=== PATIENT | female | born 1945 | race Caucasian/White ===

== ENCOUNTER → 2017-11-28 12:36 | Outpatient (CLI) | payer MEDICARE, SELFPAY ==
--- NOTE | 2017-11-28 12:43 | MM_ITS ---
MM Dig mamm DX unilat LT CAD, US breast LT complete COMPARISON: 05/15/2017, 05/02/2017, 05/29/2017 INDICATION: Follow-up abnormal mammogram and cyst aspiration ORDERING PHYSICIAN: Larry Menjivar MD PATIENT AGE: 72 years TECHNIQUE: Left mammogram with spot compression views and left breast ultrasound FINDINGS: Average fibroglandular tissue. Multiple nodular densities are once again noted involving the left breast. Benign-appearing calcifications are present. Nodular densities once again noted in the superior left breast is a small focus of calcification. This does appear to at least partially compress out on spot compression views. No malignant appearing mass or malignant appearing microcalcification apparent. Left breast ultrasound there are multiple complex and simple cysts present including a 4 mm cyst at 1:00 near the nipple, complex 12 mm cyst at 1:00, complex 12 mm cyst at 2:00, 13 mm cyst at 6:00, 5 mm cyst at 6:00, 9 mm complex cyst at 11:00. No suspicious nodules are evident. Small nodes are present in the axilla. IMPRESSION: Benign findings. No convincing evidence of malignancy. BI-RADS Category: 2 Benign Finding(s) RECOMMENDED FOLLOW-UP: 6M - 6 MONTH FOLLOW-UP Recommend bilateral screening mammogram in 6 months (A letter has been sent to the patient regarding results of the study.)
== END ==
PROVIDERS: PCP Family Medicine; Visit Provider Family Medicine
DX: R92.8 Other abnormal and inconclusive findings on diagnostic imaging of breast (principal)
CPT/HCPCS: 76641; 77065

== ENCOUNTER → 2018-06-05 09:47 | Outpatient (CLI) | payer MEDICARE, SELFPAY ==
--- NOTE | 2018-06-05 09:49 | MM_ITS ---
MM Dig SC mamm unilat LT CAD CAD Screening COMPARISON: Digital left mammogram with CAD 11/28/2017 and digital left mammogram with CAD 05/29/2017 INDICATION: There is been previous right mastectomy for malignancy. There is a history of breast cancer patient maternal aunt and paternal cousin TECHNIQUE: Standard CC and MLO images were obtained. R2 CAD reviewed. FINDINGS: Moderate heterogenic fibro glandular densities are seen in the subareolar region. There are benign-appearing calcifications noted as seen previously. There are couple mole markers. There is a stable nodular density just deep to the nipple best seen on the CC projection and previous ultrasound in November of this year showed multiple simple and complex cysts there is no suspicious lesion and there are no suspicious microcalcifications. In the subareolar region. IMPRESSION: Stable exam no suspicious lesion seen BI-RADS Category: 2 Benign Finding(s) RECOMMENDED FOLLOW-UP: 1YR - 1 YEAR FOLLOW-UP (A letter has been sent to the patient regarding results of the study.)
== END ==
PROVIDERS: PCP Family Medicine; Visit Provider Family Medicine
DX: Z12.31 Encounter for screening mammogram for malignant neoplasm of breast (principal)
CPT/HCPCS: 77067

== ENCOUNTER → 2019-07-03 09:47 | Outpatient (CLI) | payer MEDICARE, SELFPAY ==
--- NOTE | 2019-07-03 09:50 | MM_ITS ---
PROCEDURE: MM DIG SC MAMM UNILAT LT CAD CLINICAL INDICATION: SCREENING There has been a previous right mastectomy August 1996. There is a history of breast cancer patient's paternal aunt and paternal cousins. COMPARISON: DXLT MM Dig mamm DX unilat LT CAD from 11/28/2017 SCUNILT MM Dig SC mamm unilat LT CAD from 06/05/2018 DIG MAMM-DX UNI-LT from 06/05/2018 TECHNIQUE: Standard CC and MLO images were obtained. R2 CAD reviewed. FINDINGS: Scattered fibroglandular densities are seen. Again noted are multiple nodular densities which appear to be stable compared with the previous left mammogram studies. Previous ultrasound showed combination of simple and complex cysts in the left breast. Again noted are multiple benign-appearing micro and macrocalcifications. There there is no new or suspicious lesion and no suspicious microcalcifications. Are 2 mole markers as noted previously. IMPRESSION: Stable exam with benign findings as described above BI-RAD Category: 2 Benign Finding(s) FOLLOW-UP: 1YR 1 Year Follow-up (A letter has been sent to the patient regarding results of the study.) Dictated by: Dr. Feliz Barajas MD 07/03/2019 12:[address] Feliz Barajas MD in [place] 07/03/2019 12:13
== END ==
PROVIDERS: PCP Family Medicine; Visit Provider Family Medicine
DX: Z12.31 Encounter for screening mammogram for malignant neoplasm of breast (principal)
CPT/HCPCS: 77067

== ENCOUNTER → 2019-07-07 11:12 | Outpatient (CLI) | payer MEDICARE, SELFPAY ==
--- NOTE | 2019-07-07 11:16 | XR_ITS ---
PROCEDURE: XR PELVIS 1-2V CLINICAL INDICATION: LT GROIN PAIN COMPARISON: No exams were available for comparison TECHNIQUE: XR Pelvis AP View FINDINGS: No fracture or dislocation is evident. There is mild sclerosis of the symphysis pubis. Minor degenerative changes are present in the SI joints and hips. Unremarkable soft tissues. 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
== END ==
PROVIDERS: PCP Family Medicine; Visit Provider Family Medicine
DX: R10.32 Left lower quadrant pain (principal)
CPT/HCPCS: 72170

== ENCOUNTER → 2020-06-21 08:45 | Outpatient (CLI) | payer MEDICARE, SELFPAY ==
--- NOTE | 2020-06-21 08:48 | MM_ITS ---
PROCEDURE: MM DIG SC MAMM UNILAT LT CAD Digital Breast Tomosynthesis Included CLINICAL INDICATION: SCREENING There has been a previous right mastectomy for malignancy. There is a history of breast cancer in the patient's paternal aunt and paternal cousins. Patient also has a history of endometrial carcinoma. COMPARISON: MG SCUNILT MM Dig SC mamm unilat LT CAD from 06/05/2018 MG DIG MAMM-DX UNI-LT from 06/05/2018 MG MM DIG SC MAMM UNILAT LT CAD from 07/03/2019 TECHNIQUE: Standard CC and MLO images and 3D Tomosynthesis was obtained. R2 CAD reviewed. FINDINGS: Moderate somewhat heterogenic fibroglandular densities are seen in the subareolar region. A dominant density just deep to the nipple seen on the previous year's exam is not seen and presumably is a cyst which was either aspirated or has spontaneously this decompressed. Again noted are multiple benign-appearing micro and macrocalcifications. There are 3 mole markers noted. There is no suspicious lesion seen and no suspicious microcalcifications. IMPRESSION: Stable exam with no suspicious lesions seen BI-RAD Category: 2 Benign Finding(s) FOLLOW-UP: 1YR 1 Year Follow-up (A letter has been sent to the patient regarding results of the study.) Dictated by: Dr. Feliz Barajas MD 06/29/2020 13:38 Dr. Feliz Barajas MD in [place] 06/29/2020 13:38
== END ==
PROVIDERS: PCP Family Medicine; Visit Provider Family Medicine
DX: Z12.31 Encounter for screening mammogram for malignant neoplasm of breast (principal)
CPT/HCPCS: 77063; 77067

== ENCOUNTER → 2020-09-21 16:09 | Outpatient (CLI) | payer MEDICARE, SELFPAY | PROVIDERS: PCP Family Medicine; Visit Provider Family Medicine | DX: Z20.828 Contact with and (suspected) exposure to other viral communicable diseases (principal); U07.1 COVID-19 | CPT/HCPCS: U0003 ==

== ENCOUNTER → 2021-06-23 10:19 | Outpatient (CLI) | payer MEDICARE, SELFPAY ==
--- NOTE | 2021-06-23 10:20 | MM_ITS ---
PROCEDURE INFORMATION: Exam: MG unilateral Screening 3D Mammography Exam date and time: 06/23/2021 10:20 AM Age: 75 years old Clinical indication: Encounter for screening mammogram for malignant neoplasm of breast TECHNIQUE: Imaging protocol: Unilateral screening tomosynthesis and 2D mammography including computer-aided detection (CAD) when performed. COMPARISON: No relevant prior studies available. FINDINGS: MAMMOGRAPHY: Breast composition: The breast tissue is heterogeneously dense, which may obscure small masses. Mass: None. Architectural distortion: None. Calcifications: No suspicious calcifications. Asymmetric density: None. Skin thickening: None. Axillary adenopathy: None. The patient is status post right mastectomy IMPRESSION: No mammographic evidence of malignancy. Annual screening is recommended unless otherwise clinically indicated. ASSESSMENT: BI-RADS Category 1: Negative
== END ==
PROVIDERS: PCP Family Medicine; Visit Provider Family Medicine
DX: Z12.31 Encounter for screening mammogram for malignant neoplasm of breast (principal)
CPT/HCPCS: 77063; 77067

== ENCOUNTER → 2021-07-07 11:44 | Outpatient (CLI) | payer MEDICARE, SELFPAY ==
[2021-07-07 12:08] LABS: Basophils % 0.4 % (0.1-2.0); Eosinophils # 0.3 K/mm3 (0.0-0.4); Eosinophils % 3.7 % (0.1-12.0); Hematocrit 41.7 % (37.0-47.0); Hemoglobin 13.3 g/dL (12.2-16.2); Lymphocytes # 2.6 K/mm3 (0.7-4.5); Lymphocytes % 37.9 % (10-50); Mean Corpuscular HGB Conc 31.9 g/dL (31.8-35.4); Mean Corpuscular Hemoglobin 29.6 pg (27.0-31.2); Mean Platelet Volume 8.2 fl (7.4-10.4); Monocytes # 0.5 K/mm3 (0.1-1.0); Monocytes % 6.6 % (1.7-9.3); Neutrophils # 3.5 K/mm3 (1.8-7.8); Neutrophils % 51.3 % (37.0-80.0); Platelet Count 300 K/mm3 (142-424); Red Blood Count 4.48 M/mm3 (4.20-5.40); Red Cell Distribution Width 14.5 % (11.5-17.5); White Blood Count 6.9 K/mm3 (4.8-10.8)
[2021-07-07 12:41] LABS: Erythrocyte Sedimentation Rate 12 mm/hr (0-30)
[2021-07-07 13:26] LABS: Alanine Aminotransferase 17 U/L (12-78); Albumin Level 4.4 g/dl (3.5-5.0); Albumin/Globulin Ratio 1.6 (1.1-1.8); Alkaline Phosphatase 76 U/L (38-126); Anion Gap 13.7 mEq/L (5-15); Aspartate Amino Transferase 20 U/L (14-36); Bilirubin,Total 0.3 mg/dl (0.2-1.3); Blood Urea Nitrogen 15 mg/dl (7-17); Calcium 10.7 mg/dl (8.4-10.2); Carbon Dioxide 23 mmol/L (22.0-30.0); Chloride 109 mmol/L (98-107); Estimated Glomerular Filt Rate 97 ml/min (>60); GFR (African American) 117 ML/MIN (>60); Globulin 2.7 g/dL (1.3-3.2); Glucose 96 mg/dl (74-100); Potassium 4.7 mmoL/L (3.5-5.1); Sodium 141 mmol/L (136-145); Total Protein,Serum 7.1 g/dl (6.3-8.2)
[2021-07-07 13:31] LABS: C-Reactive Protein 4.5 mg/L (0-4)
[2021-07-07 13:42] LABS: 25-OH Vitamin D, Total 49.3 ng/mL (30-100)
== END ==
PROVIDERS: Visit Provider Internal Medicine
DX: M05.9 Rheumatoid arthritis with rheumatoid factor, unspecified (principal); M15.9 Polyosteoarthritis, unspecified; M35.3 Polymyalgia rheumatica; M85.50 Aneurysmal bone cyst, unspecified site; Z79.52 Long term (current) use of systemic steroids; E66.9 Obesity, unspecified; Z68.33 Body mass index [BMI] 33.0-33.9, adult
CPT/HCPCS: 36415; 80053; 82306; 85025; 85651; 86140

== ENCOUNTER 2021-08-27 10:04 | Emergency (ER) | payer MEDICARE, SELFPAY ==
[2021-08-27 11:15] VITALS: BP 149/74; PULSE 74; RESP 19; TEMP 36.8; O2SAT 97; BMI 36.6
[2021-08-27 11:45] VITALS: BP 149/74; PULSE 74; RESP 19; TEMP 36.8; O2SAT 97
--- NOTE | 2021-08-27 11:47 | HMH.EDUTC ---
[facility] Disposition Clinical Impression: UTI (urinary tract infection) Qualifiers: Urinary tract infection type: site unspecified Hematuria presence: with hematuria Qualified Code(s): N39.0 - Urinary tract infection, site not specified Disposition: Home, Self-Care Condition on Discharge: Good Instructions: Urinary Tract Infection, DI for Urinary Tract Infection (UTI), Cephalexin Additional Instructions: *Increase fluids. Water not Soda or Tea *Start antibiotic immediately and be sure to take as ordered for the FULL length of time although you should start to see improvement over the next 48 hours *Pyridium as needed Remember this medication will turn your urine Cummings. This is normal but it will stain what ever it gets on *You should not use Pyridium for more than 48 hours. If so , follow up with your primary physician to review urine culture and ensure that antibiotic is adequate for infection *Be SURE to follow up anytime for new or worsening symptoms with your family doctor. AND in 48 hours for urine culture results with your family doctor, if you do not have a doctor then you may call back to the [facility] for urine culture results and further treatment. We do recommend that you choose and establish care with a Primary Care Physician. AND follow up with them in 10-14 days to repeat UA to ensure infection is resolved and blood no longer present *Be sure to let your PCP know that we sent urine cultures from the [facility] so they can follow up to ensure that you area the on the correct antibiotic Call your doctor office and make appointment for 48 hours (2 days from today) to follow up and get the results of your urine culture and further treatment Prescriptions: cephALEXin [cephALEXin 500mg capsule*] 500 mg PO BID 7 Days #14 cap Transmission Status: Received by [id number] Phenazopyridine HCl [Pyridium 200mg Tablet] 200 pow PO TID #6 tab Transmission Status: Received by [id number] Referrals: Larry Menjivar MD [Primary Care Provider] - As needed Time of Disposition: 11:49 Medical Decision Making - Aneesh Inquiry Pt receiving controlled substance: No Aneesh was queried for this patient: No Vital Signs: 08/27/21 11:15 Temperature 98.2 F Temperature Source Oral Pulse Rate [Right Brachial] 74 Respiratory Rate 19 Blood Pressure [Right Arm] 149/74 H Blood Pressure Mean [Right Arm] 99 Blood Pressure Source [Right Arm] Automatic Cuff Blood Pressure Position [Right Arm] Sitting 02 Sat by Pulse Oximetry 97 Oxygen Delivery Method Room Air - Lab Data Lab results reviewed: Yes: I reviewed the patient's lab results. Orders (Tests/Meds): ORDERS Category Date Time Status Urine Culture Stat Micro 08/27/21 11:35 Ordered [facility] HPI - General Stated complaint: possible uti Time Seen by Provider: 08/27/21 11:47 Mode of Arrival: Ambulatory Source of Information: Patient Limitations: No Limitations Description of Symptoms (Recalled from Triage Doc. by RN): PATIENT C/O FREQUENCY AND BURNING WITH URINATION SINCE THIS MORNING HEENT Symptoms (Recalled from RN notes): No Resp Symptoms (Recalled from RN notes): No Skin Symptoms (Recalled from RN notes): No MS Symptoms (Recalled from RN notes): No Functional Status (Recalled from RN notes): WNL - History of Present Illness Provider Complaint: Patient states that she had similar symptoms about a week ago and she drink water and cranberry juice and it went away but this morning she woke up around 4am with burning with urination and feeling of urgency and frequency States that she feels like she may have a UTI - Related Data Home Medications Medication Instructions Recorded Confirmed levothyroxine 75 mcg tablet PO 90 Days #90 01/22/18 03/10/21 lisinopril 40 mg tablet PO 90 Days #90 01/22/18 03/10/21 hydroxychloroquine 200 mg tablet 200 mg PO BID tab 02/04/20 03/10/21 prednisone 2.5 mg tablet 2.5 mg PO tab 02/04/20 03/10/21 prednisone 5 mg tablet 5 mg PO DA
[2021-08-27 12:32] LABS: Apearance,Urine Clear (Clear); Blood, Urine Trace (Negative); Color,Urine Dark Yellow (Yellow); Glucose,Urine (UA) Negative (Negative); Ketones,Urine Negative (Negative); Protein,Urine Negative (Negative); Specific Gravity, Urine 1.015 (1.005-1.030)
[2021-08-27 12:33] LABS: Bilirubin,Urine Negative (Negative); UTC Leukocyte Esterase,Urine Trace (Negative); UTC Nitrate,Urine Negative (Negative); Urobilinogen,Urine 0.2 EU/dl (0.2)
== END 2021-08-27 11:50 | disposition home or self-care (01) ==
PROVIDERS: Emergency Provider Nurse Practitioner; PCP Family Medicine
DX: N30.00 Acute cystitis without hematuria (principal); B96.20 Unspecified Escherichia coli [E. coli] as the cause of diseases classified elsewhere; I10 Essential (primary) hypertension; E78.5 Hyperlipidemia, unspecified; E03.9 Hypothyroidism, unspecified; Z79.899 Other long term (current) drug therapy
CPT/HCPCS: 81003; 87086; 87088; 87186; 99202; G0463

== ENCOUNTER → 2021-11-15 10:21 | Outpatient (CLI) | payer MEDICARE, SELFPAY | PROVIDERS: Visit Provider Surgery | DX: Z01.812 Encounter for preprocedural laboratory examination (principal); Z11.52 Encounter for screening for COVID-19; Z12.11 Encounter for screening for malignant neoplasm of colon | CPT/HCPCS: C9803; U0003; U0005 ==

== ENCOUNTER 2021-11-17 06:17 | Day surgery (SDC) | payer MEDICARE, SELFPAY ==
[2021-10-02 09:47] VITALS: BMI 33.8
[2021-11-17 06:45] VITALS: BP 128/73; PULSE 75; RESP 18; TEMP 36.2; O2SAT 98
--- NOTE | 2021-11-17 07:20 | HMH.ANESCL ---
[facility] Anesthesia Checklist - Patient Identification Patient Identification: Arm Band - Structural Data Admitted From: Home Planned Operative Procedure/s: colonoscopy Consent for Planned Operative Procedure(s) Verified: Yes Verified Documents: Surgical Consent, History and Physical - NPO Status Verified Time NPO: 00:00 - Additional verifications Anesthesia Reactions: No - Airway Assessment C-Spine Mobility Assessed: Yes (mp2) TMJ Mobility Assessed: Yes Dentition: Good Dentition - Neurological Assessment Level of Consciousness: Awake, Alert - Anesthesia Plan Anesthesia Risk discussed: Yes Anesthesia Plan: Verified ASA Class: II Anesthesia Type: MAC [facility] History I have reviewed the patient's past medical history: Yes Medical History: Reports:: Cancer, Hyperlipidemia, Hypertension Denies:: Diabetes Mellitus Type 1, Diabetes Mellitus Type 2, Internal Pacemaker, MRSA, Seizures *Have you ever received a pneumonia vaccine?: Yes *Have you received a flu vaccine this season?: Yes Other Medical History: Reports: Arthritis, Hypothyroidism, Sinus Problems, Other Anesthesia experience/problems:: nac Laterality Cases: Right: Mastectomy, Bilateral: Other Other Surgeries: Yes: Cancer Surgery, Hernia Repair, Hysterectomy-Total, Tubal Ligation. No: Pacemaker Amputation: No Fractures: No - *Social History Last grade of school completed: High school graduate Smoking Status: Never smoker Alcohol Intake: never Substance Use Type: denies use *Occupational Status:: other Housing: house Household Members: spouse *Travel in the last 8 weeks: None Family Hx:: Cancer, Diabetes, Coronary Artery Disease, Asthma [employer] history: Tubal Ligation
[2021-11-17 07:27] VITALS: O2SAT 98
--- NOTE | 2021-11-17 08:31 | HMH.SCOPE ---
- Procedure: Date: 11/17/21 Patient Date of :: 1945 Procedure Performed:: Total colonoscopy to terminal ileum with multiple polypectomy Indications:: Patient is a pleasant 76-year old female. She has a family history of colon cancer in her mother diagnosed with colon cancer in her 70s. She is undergone several colonoscopies in the past by Dr. Gay in September 2009, April 2011, July 2012, August 2015. She had a polyp removed at each time. She is without complaints. Performing Provider:: Vitaly Jiang MD Referring Provider:: Samuel Cooper MD Sedation:: MAC sedation Procedure:: Patient was taken to endoscopy procedure room. She was positioned in lateral decubitus position. Adequate intravenous sedation was achieved with anesthesia titration of propofol. Variable stiffness Olympus colonoscope was inserted via the anus. With some minor difficulty due to some angulation and floppiness of the sigmoid colon colonoscope was advanced to the cecum. Colonic preparation was good however there was some undigested vegetable matter within the colon. Visualization was achieved with moving and manipulating this vegetable matter to allow for visualization of the underlying mucosa. The ileocecal valve was clearly identified and the colonoscope was advanced into the terminal ileum which appeared grossly normal. Colonoscope was withdrawn through the colon with careful surveillance. She did have some left-sided diverticulosis. There were 2 small polyps in the sigmoid colon measuring about 3 to 4 mm removed with cold snare. In the distal sigmoid colon there was a small polyp removed. The rectosigmoid there was a relatively large polypoid pedunculated lesion which was removed in a piecemeal fashion using hot snare. In the proximal rectal area there was a somewhat villous pedunculated lesion removed with hot snare. In the distal rectum there were a couple hyperplastic appearing polyps removed with biopsy forceps. Retroflexion within the rectum revealed some prolapsing hemorrhoids. Colonoscope was withdrawn. Findings:: Polyps as noted above Diverticulosis Nonbleeding internal hemorrhoids Recommendations:: Follow-up colonoscopy pending pathology. Likely 2 or 3 years. Complications:: None immediately apparent Estimated blood obtained (mL): 2
[2021-11-17 08:33] VITALS: BP 128/55; PULSE 66; RESP 16; TEMP 36.1; O2SAT 96
[2021-11-17 08:43] VITALS: BP 141/71; PULSE 58; RESP 18; TEMP 36.1; O2SAT 99
[2021-11-17 08:53] VITALS: BP 145/71; PULSE 61; RESP 18; TEMP 36.1; O2SAT 100
[2021-11-17 09:04] VITALS: BP 145/71; PULSE 61; RESP 18; TEMP 36.1; O2SAT 100
== END 2021-11-17 09:04 | disposition home or self-care (01) ==
LOC: OUTP 06:18
PROVIDERS: PCP Family Medicine; Visit Provider Surgery
PROC: 0DJD8ZZ Inspection of Lower Intestinal Tract, Via Natural or Artificial Opening Endoscopic (ICD-10-PCS; principal; 2021-11-17 07:30)
DX: Z12.11 Encounter for screening for malignant neoplasm of colon (principal); K63.5 Polyp of colon; K62.1 Rectal polyp; K57.32 Diverticulitis of large intestine without perforation or abscess without bleeding; K56.2 Volvulus; Z86.010 Personal history of colon polyps; K64.9 Unspecified hemorrhoids; Z80.0 Family history of malignant neoplasm of digestive organs; E78.5 Hyperlipidemia, unspecified; I10 Essential (primary) hypertension; Z83.3 Family history of diabetes mellitus; Z82.5 Family history of asthma and other chronic lower respiratory diseases; Z82.49 Family history of ischemic heart disease and other diseases of the circulatory system
CPT/HCPCS: 45380; 45385; 88305

== ENCOUNTER → 2022-01-05 11:09 | Outpatient (CLI) | payer MEDICARE, SELFPAY ==
[2022-01-05 11:32] LABS: Basophils # 0.1 K/mm3 (0-0.2); Basophils % 1.1 % (0.1-2.0); Eosinophils # 0.2 K/mm3 (0.0-0.4); Eosinophils % 3.9 % (0.1-12.0); Hematocrit 41.8 % (37.0-47.0); Hemoglobin 13.6 g/dL (12.2-16.2); Lymphocytes # 1.9 K/mm3 (0.7-4.5); Lymphocytes % 30.9 % (10-50); Mean Corpuscular HGB Conc 32.5 g/dL (31.8-35.4); Mean Corpuscular Hemoglobin 29.7 pg (27.0-31.2); Mean Corpuscular Volume 91.2 fl (81-99); Mean Platelet Volume 7.9 fl (7.4-10.4); Monocytes # 0.4 K/mm3 (0.1-1.0); Monocytes % 6.6 % (1.7-9.3); Neutrophils # 3.6 K/mm3 (1.8-7.8); Neutrophils % 57.4 % (37.0-80.0); Platelet Count 272 K/mm3 (142-424); Red Blood Count 4.59 M/mm3 (4.20-5.40); Red Cell Distribution Width 14.6 % (11.5-17.5); White Blood Count 6.2 K/mm3 (4.8-10.8)
[2022-01-05 12:24] LABS: Alanine Aminotransferase 19 U/L (12-78); Albumin Level 4.6 g/dl (3.5-5.0); Albumin/Globulin Ratio 1.9 (1.1-1.8); Alkaline Phosphatase 72 U/L (38-126); Anion Gap 12.4 mEq/L (5-15); Aspartate Amino Transferase 23 U/L (14-36); Bilirubin,Total 0.6 mg/dl (0.2-1.3); Blood Urea Nitrogen 18 mg/dl (7-17); Calcium 10.7 mg/dl (8.4-10.2); Carbon Dioxide 24 mmol/L (22.0-30.0); Chloride 107 mmol/L (98-107); Estimated Glomerular Filt Rate 81 ml/min (>60); GFR (African American) 98 ML/MIN (>60); Globulin 2.4 g/dL (1.3-3.2); Glucose 107 mg/dl (74-100); Potassium 4.4 mmoL/L (3.5-5.1); Sodium 139 mmol/L (136-145)
[2022-01-05 12:29] LABS: C-Reactive Protein 2.6 mg/L (0-4)
[2022-01-05 13:51] LABS: Erythrocyte Sedimentation Rate 15 mm/hr (0-30)
== END ==
PROVIDERS: Visit Provider Nurse Practitioner Family
DX: M05.9 Rheumatoid arthritis with rheumatoid factor, unspecified (principal); Z79.899 Other long term (current) drug therapy
CPT/HCPCS: 36415; 80053; 85025; 85651; 86140

== ENCOUNTER → 2022-06-27 10:45 | Outpatient (CLI) | payer MEDICARE, SELFPAY ==
--- NOTE | 2022-06-27 10:47 | MM_ITS ---
PROCEDURE INFORMATION: Exam: MG Left Screening 3D Mammography Exam date and time: 06/27/2022 10:43 AM Age: 76 years old Clinical indication: Screening examination . Remote history of right breast cancer treated with mastectomy TECHNIQUE: Imaging protocol: Left Screening tomosynthesis and 2D mammography including computer-aided detection (CAD) when performed. COMPARISON: 1. MG MM DIG SC MAMM UNILAT LT CAD 06/23/2021 10:19 AM 2. MG MM DIG SC MAMM UNILAT LT CAD 06/21/2020 8:51 AM FINDINGS: MAMMOGRAPHY: Breast composition: The breast is heterogeneously dense, which may obscure small masses. Mass: 0.8 cm mass in the posterior third of the left lower inner quadrant. Architectural distortion: None. Calcifications: No suspicious calcifications. Asymmetric density: None. Skin thickening: None. Axillary adenopathy: None. Other findings: The patient is status post right mastectomy. IMPRESSION: Patient to be recalled for left breast ultrasound for further evaluation of a left breast mass. ASSESSMENT: BI-RADS Category 0: Incomplete- Need Additional Imaging Evaluation and/or Prior Mammograms for Comparison
== END ==
PROVIDERS: PCP Nurse Practitioner Family; Visit Provider Family Medicine
DX: Z12.31 Encounter for screening mammogram for malignant neoplasm of breast (principal)
CPT/HCPCS: 77063; 77067

== ENCOUNTER → 2022-07-09 08:45 | Outpatient (CLI) | payer MEDICARE, SELFPAY ==
--- NOTE | 2022-07-09 08:49 | US_ITS ---
PROCEDURE INFORMATION: Exam: US Left Breast, Complete Exam date and time: 07/09/2022 9:13 AM Age: 76 years old Clinical indication: Patient recalled for further evaluation of a left breast mass TECHNIQUE: TECHNIQUE: Imaging protocol: Complete ultrasound of all four quadrants of the Left breast and the retroareolar regions, including ultrasound of the axilla when performed. COMPARISON: BREASTLT US breast LT complete 11/28/2017 2:07 PM FINDINGS: Breast: Sonographic images of the left breast including the retroareolar region, all 4 quadrants and the axilla demonstrates an irregularly marginated hypoechoic solid mass with associated distortion in the 8 o'clock axis 8 cm from the nipple corresponding to the mass on mammography. It measures 1.1 x 0.9 x 0.8 cm in dimension and is suspicious for carcinoma. Few scattered subcentimeter cysts are otherwise noted in the left breast. No architectural distortion or acoustical shadowing. No skin thickening or axillary adenopathy. IMPRESSION: Suspicious posterior left lower inner quadrant mass. Ultrasound-guided core biopsy is recommended for further evaluation. ASSESSMENT: BI-RADS Category 4: Suspicious
== END ==
PROVIDERS: PCP Nurse Practitioner Family; Visit Provider Nurse Practitioner Family
DX: N63.20 Unspecified lump in the left breast, unspecified quadrant (principal); R92.8 Other abnormal and inconclusive findings on diagnostic imaging of breast
CPT/HCPCS: 76641

== ENCOUNTER → 2022-07-13 13:02 | Outpatient (CLI) | payer MEDICARE, SELFPAY ==
[2022-07-13 14:07] LABS: Basophils # 0.1 K/mm3 (0-0.2); Basophils % 0.8 % (0.1-2.0); Eosinophils # 0.3 K/mm3 (0.0-0.4); Eosinophils % 3.9 % (0.1-12.0); Hematocrit 39.9 % (37.0-47.0); Hemoglobin 12.9 g/dL (12.2-16.2); Lymphocytes # 2.3 K/mm3 (0.7-4.5); Lymphocytes % 31.3 % (10-50); Mean Corpuscular HGB Conc 32.3 g/dL (31.8-35.4); Mean Corpuscular Hemoglobin 28.8 pg (27.0-31.2); Mean Corpuscular Volume 89.3 fl (81-99); Monocytes # 0.5 K/mm3 (0.1-1.0); Monocytes % 7.2 % (1.7-9.3); Neutrophils # 4.2 K/mm3 (1.8-7.8); Neutrophils % 56.8 % (37.0-80.0); Platelet Count 315 K/mm3 (142-424); Red Blood Count 4.47 M/mm3 (4.20-5.40); Red Cell Distribution Width 14.1 % (11.5-17.5); White Blood Count 7.3 K/mm3 (4.8-10.8)
[2022-07-13 14:27] LABS: Alanine Aminotransferase 17 U/L (12-78); Albumin Level 4.1 g/dl (3.5-5.0); Albumin/Globulin Ratio 1.8 (1.1-1.8); Alkaline Phosphatase 83 U/L (38-126); Anion Gap 14.5 mEq/L (5-15); Aspartate Amino Transferase 21 U/L (14-36); Bilirubin,Total 0.3 mg/dl (0.2-1.3); Blood Urea Nitrogen 23 mg/dl (7-17); Calcium 10.4 mg/dl (8.4-10.2); Carbon Dioxide 25 mmol/L (22.0-30.0); Chloride 104 mmol/L (98-107); Estimated Glomerular Filt Rate 69 ml/min (>60); GFR (African American) 84 ML/MIN (>60); Globulin 2.3 g/dL (1.3-3.2); Glucose 97 mg/dl (74-100); Potassium 4.5 mmoL/L (3.5-5.1); Sodium 139 mmol/L (136-145); Total Protein,Serum 6.4 g/dl (6.3-8.2)
[2022-07-13 16:06] LABS: Erythrocyte Sedimentation Rate 12 mm/hr (0-30)
== END ==
PROVIDERS: PCP Nurse Practitioner Family; Visit Provider Internal Medicine
DX: M05.9 Rheumatoid arthritis with rheumatoid factor, unspecified (principal); M15.9 Polyosteoarthritis, unspecified; M35.3 Polymyalgia rheumatica; Z79.899 Other long term (current) drug therapy
CPT/HCPCS: 36415; 80053; 85025; 85651; 86140

== ENCOUNTER → 2022-08-01 07:26 | Outpatient (CLI) | payer MEDICARE, SELFPAY ==
--- NOTE | 2022-08-01 | US_ITS ---
FINAL REPORT CLINICAL HISTORY: .lt breast mammatone dr lucero FINDINGS: ULTRASOUND-GUIDED LEFT BREAST CORE BIOPSY TECHNIQUE: Limited images were obtained to localize region of interest. The left was prepped in a routine sterile fashion and locally anesthetized with 1% lidocaine. Standard written informed consent was obtained. An 11-gauge vacuum assisted hand-held device was utilized. Irregular lesion at 8:00 in the left lower inner quadrant was targeted. The needle was positioned posterior to the lesion. Multiple vacuum assisted core samples were obtained. The lesion was noted to be significantly smaller following biopsy. A biopsy marker clip was deployed. Procedure was well tolerated . CONCLUSION: 1. Technically successful ultrasound guided core vacuum assisted biopsy of left breast lesion as above. 2. 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 Medical and surgical oncologic follow-up recommended. Authenticated and ERN
--- NOTE | 2022-08-01 07:36 | MM_ITS ---
FINAL REPORT CLINICAL HISTORY: post .bx clip placement FINDINGS: MAMMOGRAM LEFT TECHNIQUE: Standard digital 2-D views COMPARISON: 07-07-22 DENSITY: There are scattered areas of fibroglandular density FINDINGS: Post biopsy marker clip is noted to be in satisfactory position. Postbiopsy changes are noted. Focal asymmetry corresponding to postbiopsy changes are seen in the posterior portion of the left breast at 8:00. Biopsy marker clip is seen at this site corresponding to previously noted focal asymmetry. IMPRESSION: Biopsy marker clip in good position RECOMMENDATION: Medical and surgical oncologic referral given findings on histopathology Authenticated and ERN
== END ==
PROVIDERS: PCP Nurse Practitioner Family; Visit Provider Nurse Practitioner Family
DX: R92.8 Other abnormal and inconclusive findings on diagnostic imaging of breast (principal)
CPT/HCPCS: 19083; 77065; C2618

== ENCOUNTER 2022-08-11 08:48 | Emergency (ER) | payer MEDICARE, SELFPAY ==
[2022-08-11 09:25] VITALS: BP 154/75; PULSE 73; RESP 19; TEMP 36.6; O2SAT 97; BMI 30.1
--- NOTE | 2022-08-11 09:51 | EXP.UTC ---
Discharge Plan Disposition Patient Disposition: Home, Self-Care Condition: Good Prescriptions Prescriptions: New benzonatate 100 mg capsule 100 mg PO TID PRN (Reason: cough) Qty: 30 0RF amoxicillin-pot clavulanate 875-125 mg Tablet 1 tab PO Q12H Qty: 14 0RF prednisone 10 mg tablet 10 mg PO BID 5 Days Qty: 10 0RF No Action atorvastatin [Lipitor] 10 mg tablet 10 mg PO DAILY lisinopril 40 mg tablet 40 mg PO DAILY 90 Days Qty: 90 levothyroxine 75 mcg tablet 75 mcg PO DAILY 90 Days Qty: 90 hydroxychloroquine 200 mg tablet 200 mg PO BID Label Comments: TAKE 1 TABLET BY MOUTH TWICE DAILY Referrals Follow up/Referrals: Radha Sanchez APRN [Primary Care Provider] - See instructions Activity Restrictions/Add. Instructions Additional Instructions/Restrictions: Start antibiotic today. Be sure to complete entire prescription even if feeling better Monitor temp. Tylenol every 4 hours as needed and / or ibuprofen every 6 hours as needed ( As long as your primary care physician has told you that it ok to take both. For fever/aches/pains ER if no less than 101 despite Tylenol or Motrin Humidifier/vaporizer or hot steamy shower *Tessalon Perles will not cause drowsiness but use at bedtime to help stop cough so that you may get some rest. *Start steroid today. Helps with inflammation therefore, cough and wheezing. Follow directions on the package. Reviewed side effects. Patient reports taking them before. Follow up IMMEDIATELY for new or worsening of symptoms OR no noticeable improvement over the next 48-72 hours. 911 immediately for any life threatening symptoms such as chest pain or difficulty breathing Clinical Impressions Clinical Impression: Bronchitis Sinusitis Qualifiers: Sinusitis location: unspecified location Chronicity: unspecified Qualified Code(s): J32.9 - Chronic sinusitis, unspecified Instructions Patient Instructions: Sinusitis, Acute Bronchitis, DI for Sinusitis Discharge ED Provider: Yen Leary [facility] General Stated complaint: chest congestion, cough Mode of Arrival: Ambulatory Source of Information: Patient Limitations: No Limitations Time Seen by Provider: 08/11/22 09:51 Description of Symptoms (Recalled from Triage Doc. by RN): PATIENT STATES SHE STARTED WITH SINUS DRAINAGE AND CONGESTION 2 WEEKS AGO, AND NOW FEELS LIKE IT IS IN HER CHEST. C/O COUGH AND BURNING IN CHEST HEENT Symptoms (Recalled from RN notes): Yes Resp Symptoms (Recalled from RN notes): Yes Skin Symptoms (Recalled from RN notes): No MS Symptoms (Recalled from RN notes): No Functional Status (Recalled from RN notes): WNL History of Present Illness Provider Complaint: Patient states that she started with sinus infection about 2 weeks ago that she thought would get better States that for the last couple of days the sinus pain and pressure has got worse and draining in the back of her throat causing her throat to feels sore and moving into her chest and having burning in her chest and throat at time where it is raw when she coughs States that today she was still not feeling well so she came in Related Data Home Medications Medication Instructions Recorded Confirmed levothyroxine 75 mcg tablet 75 mcg PO DAILY Supplement 90 days 01/22/18 08/11/22 ##90 lisinopril 40 mg tablet 40 mg PO DAILY Hypertension 90 01/22/18 08/11/22 days ##90 hydroxychloroquine 200 mg tablet 200 mg PO BID Arthritis 02/04/20 08/11/22 atorvastatin 10 mg tablet (Lipitor) 10 mg PO DAILY Cholesterol 03/10/21 08/11/22 Previous Rx's Medication Instructions Recorded amoxicillin 875 mg-potassium 1 tab PO Q12H #14 tabs 08/11/22 clavulanate 125 mg tablet benzonatate 100 mg capsule 100 mg PO TID PRN cough #30 caps 08/11/22 prednisone 10 mg tablet 10 mg PO BID 5 days #10 tabs 08/11/22 Allergies Allergy/AdvReac Type Severity Reaction Status Date / Time No Benny
[2022-08-11 10:10] VITALS: BP 154/75; PULSE 73; RESP 19; TEMP 36.6; O2SAT 97
== END 2022-08-11 10:14 | disposition home or self-care (01) ==
PROVIDERS: Emergency Provider Nurse Practitioner; PCP Nurse Practitioner Family
DX: J40 Bronchitis, not specified as acute or chronic (principal)
CPT/HCPCS: 99212; G0463

== ENCOUNTER → 2023-01-09 11:15 | Outpatient (CLI) | payer MEDICARE, SELFPAY ==
[2023-01-09 12:07] LABS: Chloride 108 mmol/L (98-107); Potassium 4.5 mmoL/L (3.5-5.1); Sodium 138 mmol/L (136-145)
[2023-01-09 12:09] LABS: Blood Urea Nitrogen 17 mg/dl (7-17); Estimated Glomerular Filt Rate 81 ml/min (>60); GFR (African American) 98 ML/MIN (>60)
[2023-01-09 12:10] LABS: Alanine Aminotransferase 21 U/L (12-78); Albumin Level 4.5 g/dl (3.5-5.0); Albumin/Globulin Ratio 1.8 (1.1-1.8); Alkaline Phosphatase 73 U/L (38-126); Anion Gap 11.5 mEq/L (5-15); Aspartate Amino Transferase 21 U/L (14-36); Bilirubin,Total 0.3 mg/dl (0.2-1.3); Calcium 11.2 mg/dl (8.4-10.2); Carbon Dioxide 23 mmol/L (22.0-30.0); Globulin 2.5 g/dL (1.3-3.2); Glucose 100 mg/dl (74-100)
[2023-01-09 12:16] LABS: C-Reactive Protein 1.7 mg/L (0-4)
[2023-01-09 12:29] LABS: Erythrocyte Sedimentation Rate 7 mm/hr (0-30)
[2023-01-09 12:35] LABS: Basophils % 0.4 % (0.1-2.0); Eosinophils # 0.3 K/mm3 (0.0-0.4); Eosinophils % 4.7 % (0.1-12.0); Hematocrit 42.4 % (37.0-47.0); Hemoglobin 13.5 g/dL (12.2-16.2); Lymphocytes # 2.3 K/mm3 (0.7-4.5); Lymphocytes % 33.4 % (10-50); Mean Corpuscular HGB Conc 31.9 g/dL (31.8-35.4); Mean Corpuscular Hemoglobin 28.5 pg (27.0-31.2); Mean Corpuscular Volume 89.3 fl (81-99); Monocytes # 0.4 K/mm3 (0.1-1.0); Monocytes % 6.4 % (1.7-9.3); Neutrophils # 3.8 K/mm3 (1.8-7.8); Neutrophils % 55.1 % (37.0-80.0); Platelet Count 285 K/mm3 (142-424); Red Blood Count 4.75 M/mm3 (4.20-5.40); White Blood Count 6.9 K/mm3 (4.8-10.8)
== END ==
PROVIDERS: PCP Nurse Practitioner Family; Visit Provider Nurse Practitioner Family
DX: M05.9 Rheumatoid arthritis with rheumatoid factor, unspecified (principal); M35.3 Polymyalgia rheumatica; Z79.899 Other long term (current) drug therapy
CPT/HCPCS: 36415; 80053; 85025; 85651; 86140

== ENCOUNTER → 2023-01-18 10:41 | Outpatient (CLI) | payer MEDICARE, SELFPAY ==
[2023-01-18 12:17] LABS: Intact Parathyroid Hormone 135.1 pg/mL (7.5-53.5)
[2023-01-18 13:16] LABS: 25-OH Vitamin D, Total 46.2 ng/mL (30-100)
== END ==
PROVIDERS: PCP Family Medicine; Visit Provider Internal Medicine
DX: E83.52 Hypercalcemia (principal)
CPT/HCPCS: 36415; 82306; 83970

== ENCOUNTER 2023-12-04 16:57 | Outpatient (CLI) | payer MEDICARE, SELFPAY | END 2023-12-04 23:59 | LOC: LAB.DROPOF 16:58 | PROVIDERS: PCP Nurse Practitioner Family; Visit Provider Nurse Practitioner Family | DX: N76.0 Acute vaginitis (principal) | CPT/HCPCS: 87070; 87205 ==

== ENCOUNTER 2024-03-21 09:59 | Emergency (ER) | payer MEDICARE, SELFPAY ==
[2024-03-21 10:55] VITALS: BP 147/62; PULSE 64; RESP 18; TEMP 36.6; O2SAT 95; BMI 32.2
--- NOTE | 2024-03-21 11:01 | EXP.UTC ---
Discharge Plan Disposition Patient Disposition: Home, Self-Care Condition: Good Prescriptions Prescriptions: New phenazopyridine [Pyridium] 200 mg tablet 200 mg PO Q8H 2 Days Qty: 6 0RF nitrofurantoin monohyd/m-cryst [Macrobid] 100 mg Capsule 100 mg PO BID Qty: 10 0RF Rx Instructions: must administer with a meal/food ondansetron 4 mg Tablet,Disintegrating 4 mg PO Q8H PRN (Reason: Nausea) Qty: 12 0RF No Action atorvastatin [Lipitor] 10 mg tablet 10 mg PO DAILY lisinopril 40 mg tablet 40 mg PO DAILY 90 Days Qty: 90 levothyroxine 75 mcg tablet 75 mcg PO DAILY 90 Days Qty: 90 hydroxychloroquine 200 mg tablet 200 mg PO BID Patient Comments: TAKE 1 TABLET BY MOUTH TWICE DAILY albuterol sulfate 90 mcg/actuation HFA aerosol inhaler 2 puff inhalation Q4-6H PRN (Reason: shortness of breath or wheezing) Qty: 8.5 0RF Referrals Follow up/Referrals: Radha Sanchez APRN [Primary Care Provider] - See instructions Activity Restrictions/Add. Instructions Additional Instructions/Restrictions: Drink plenty of fluids. Take tylenol or ibuprofen for pain or fever. Take the medications as directed. Follow up with your regular doctor. GO TO THE ER FOR ANY WORSENING SYMPTOMS The pyridium will make your urine turn orange, this is an expected side effect. It will stain your clothes if it comes into contact with them. We will culture the urine. That will tell what bacteria is causing your infection and which antibiotics will treat it best. Sometimes the first antibiotic we prescribe turns out to not work against different bacteria. So, make sure you follow up within 3 days if you are not getting better. Clinical Impressions Clinical Impression: UTI (urinary tract infection) Qualifiers: Urinary tract infection type: site unspecified Hematuria presence: with hematuria Qualified Code(s): N39.0 - Urinary tract infection, site not specified Instructions Patient Instructions: Urine Culture, DI for Urinary Tract Infection (UTI), Phenazopyridine Discharge ED Provider: Martín Parks [facility] [place] General Stated complaint: uti Time Seen by Provider: 03/21/24 11:01 Related Data Home Medications Medication Instructions Recorded Confirmed levothyroxine 75 mcg tablet 75 mcg PO DAILY Supplement 90 days 01/22/18 03/21/24 ##90 lisinopril 40 mg tablet 40 mg PO DAILY Hypertension 90 01/22/18 03/21/24 days ##90 hydroxychloroquine 200 mg tablet 200 mg PO BID Arthritis 02/04/20 03/21/24 atorvastatin 10 mg tablet (Lipitor) 10 mg PO DAILY Cholesterol 03/10/21 03/21/24 Previous Rx's Medication Instructions Recorded albuterol sulfate 90 mcg/actuation 2 puff inhalation Q4-6H PRN 10/01/23 aerosol inhaler shortness of breath or wheezing #8.5 grams nitrofurantoin 100 mg PO BID #10 caps 03/21/24 monohydrate/macrocrystals 100 mg capsule (Macrobid) ondansetron 4 mg disintegrating 4 mg PO Q8H PRN Nausea #12 tabs 03/21/24 tablet phenazopyridine 200 mg tablet 200 mg PO Q8H 2 days #6 tabs 03/21/24 (Pyridium) Allergies Allergy/AdvReac Type Severity Reaction Status Date / Time No Known Allergies Allergy Verified 03/21/24 11:09 [facility] Disclaimer: The information contained in this section may have been updated after the patient was seen, as this information can be updated by other users. Medical History Thyroid disease Cancer Hyperlipidemia Hypertension Surgical History History of tubal ligation History of hysterectomy Social History Smoking Status: Never smoker alcohol intake: never substance use type: denies use current occupational status: other Travel in the last 8 weeks: None household members: spouse housing: house current occupational exposures/hazards: No caffeine: Yes ROS Obtained: Yes All systems reviewed & no additional complaints except as documented Constitutional Constitutional: Reports system reviewed and no additional complaints, except as documented, Denies chills and Denies fever(s) Eyes Eyes: Denies eye discharge ENT Ears, Nose, Mouth, and Throat: Denies dysphagia, Denies sore throat and Denies throat swelling Cardiovascular Cardiovascular: Denies chest pain and Denies dyspnea Respiratory Respiratory: Denies chest congestion, Denies cough and Denies dyspnea Gastrointestinal Gastrointestingal: Denies abdominal pain, constipation, diarrhea, dysphagia, nausea or vomiting Genitourinary Female Genitourinary: Reports as per HPI, Reports dysuria, Reports urinary frequency, Denies urinary incontinence, Reports urinary hesitancy and Reports urinary urgency Musculoskeletal Musculoskeletal: Denies arthralgias and Reports back pain Integumentary/Breasts Skin/Breast: Denies rash Neurologic Neurologic: Denies paresthesias Allergic/Immunologic Allergic/Immunologic: Denies throat swelling Physical Exam General General appearance: alert and in no apparent distress Head Head exam: atraumatic and normocephalic Eye Eye exam: Present normal appearance, PERRL and EOMI ENT ENT exam: Present normal exam, mucous membranes moist, TM's normal bilaterally and normal external ear exam Neck Neck exam: Present normal inspection, full ROM and trachea midline; Absent tenderness, meningismus or lymphadenopathy Chest Chest inspection: Present normal inspection and symmetric chest wall rise; Absent tenderness Respiratory Respiratory exam: Present normal lung sounds bilaterally; Absent respiratory distress, wheezes or stridor Cardiovascular Cardiovascular exam: Present regular rate, normal rhythm and normal heart sounds Abdominal Exam Abdominal exam: Present soft and normal bowel sounds; Absent distention, tenderness, guarding, rebound, rigidity, incision, psoas sign, obturator sign, heel tap sign, Lundy's sign, Rovsing's sign or tenderness at McBurney's Point Extremities Exam Extremities exam: Present normal inspection, full ROM and normal capillary refill; Absent tenderness, edema, joint swelling, calf tenderness or cyanosis Back Exam Back exam: Present normal inspection and full ROM; Absent tenderness, CVA tenderness (R) or CVA tenderness (L) Neurological Exam Neurological exam: Present alert, oriented X3 and normal gait Psychiatric Psychiatric exam: Present normal affect and normal mood Skin Skin exam: Present warm, dry, intact and normal color Lymphatic Lymphatic Findings: no adenopathy Medical Decision Making Medical Records Medical records reviewed: No I reviewed the patient's medical records. Aneesh Inquiry Pt receiving controlled substance: No Lab Data Lab results reviewed: Yes I reviewed the patient's lab results.
[2024-03-21 11:18] LABS: Apearance,Urine Clear (Clear); Color,Urine Yellow (Yellow)
[2024-03-21 11:19] LABS: Bilirubin,Urine Negative (Negative); Blood, Urine 2+ (Negative); Glucose,Urine (UA) Negative (Negative); Ketones,Urine Negative (Negative); Protein,Urine Negative (Negative); Specific Gravity, Urine 1.005 (1.005-1.030); UTC Leukocyte Esterase,Urine 2+ (Negative); UTC Nitrate,Urine Negative (Negative); Urobilinogen,Urine 0.2 EU/dl (0.2)
--- NOTE | 2024-03-21 11:19 | PC.NURSE ---
Sent urine culture to lab via tube system.
[2024-03-21 11:50] VITALS: BP 147/62; PULSE 64; RESP 18; TEMP 36.6; O2SAT 95
--- NOTE | 2024-03-23 14:33 | PC.NURSE ---
REVIEWED PATIENT'S URINE CULTURE. PATIENT IS CURRENTLY ON MACROBID WHICH IS SUSCEPTIBLE, NO CHANGE NEEDED AT THIS TIME
== END 2024-03-21 12:10 | disposition home or self-care (01) ==
PROVIDERS: Emergency Provider Nurse Practitioner Family; PCP Nurse Practitioner Family
DX: N39.0 Urinary tract infection, site not specified (principal); B96.29 Other Escherichia coli [E. coli] as the cause of diseases classified elsewhere; R31.9 Hematuria, unspecified; R30.0 Dysuria; R35.0 Frequency of micturition
CPT/HCPCS: 81003; 87086; 87088; 87186; 99212; 99214; G0463

== ENCOUNTER 2024-03-30 10:54 | Outpatient (CLI) | payer MEDICARE, SELFPAY ==
[2024-03-30 11:44] LABS: Alanine Aminotransferase 20 U/L (12-78); Albumin Level 4.6 g/dl (3.5-5.0); Albumin/Globulin Ratio 1.9 (1.1-1.8); Alkaline Phosphatase 67 U/L (38-126); Anion Gap 13.7 mEq/L (5-15); Aspartate Amino Transferase 23 U/L (14-36); Bilirubin,Total 0.4 mg/dl (0.2-1.3); Blood Urea Nitrogen 23 mg/dl (7-17); Calcium 11.1 mg/dl (8.4-10.2); Carbon Dioxide 21 mmol/L (22.0-30.0); Chloride 109 mmol/L (98-107); Chol/HDL Ratio 3.1 (1-3.5); Cholesterol 197 mg/dl (140-200); Estimated Glomerular Filt Rate 81 ml/min (>60); GFR (African American) 97 ML/MIN (>60); Globulin 2.4 g/dL (1.3-3.2); Glucose 119 mg/dl (74-100); HDL Cholesterol 63 mg/dl (40-60); Potassium 4.7 mmoL/L (3.5-5.1); Sodium 139 mmol/L (136-145); Triglycerides 172 mg/dl (30-150); VLDL Cholesterol 34 mg/dL (0-40)
[2024-03-30 11:54] LABS: Direct LDL Cholesterol 92.33 mg/dL (100-129)
[2024-03-30 11:56] LABS: Intact Parathyroid Hormone 148.7 pg/mL (7.5-53.5)
[2024-03-30 11:57] LABS: 25-OH Vitamin D, Total 41.3 ng/mL (30-100)
[2024-03-30 12:14] LABS: Thyroid Stimulating Hormone 1.38 uIU/mL (0.465-4.68)
[2024-03-31 08:09] LABS: Triiodothyronine (T3) Free 2.6 pg/mL (2.0-4.4)
[2024-03-31 16:26] LABS: Calcium, Ionized 5.7 mg/dL (4.5-5.6)
== END 2024-03-30 23:59 | disposition home or self-care (01) ==
LOC: LAB.DROPOF 10:55
PROVIDERS: PCP Nurse Practitioner Family; Visit Provider Nurse Practitioner Family
DX: E03.9 Hypothyroidism, unspecified (principal); E83.52 Hypercalcemia; M85.80 Other specified disorders of bone density and structure, unspecified site; I10 Essential (primary) hypertension; E78.5 Hyperlipidemia, unspecified; E07.9 Disorder of thyroid, unspecified; Z68.32 Body mass index [BMI] 32.0-32.9, adult; E66.9 Obesity, unspecified
CPT/HCPCS: 80053; 80061; 82306; 82330; 83970; 84443; 84481

== ENCOUNTER 2024-10-29 15:50 | Outpatient (CLI) | payer MEDICARE, SELFPAY ==
--- NOTE | 2024-10-29 15:54 | XR_ITS ---
FINAL REPORT CLINICAL HISTORY: r/o pna, shortness of breath COMPARISON: 03/09/2020 FINDINGS: No acute pulmonary density is evident. There is no evidence of effusion or other pleural disease. There are changes of emphysema. The mediastinum has a normal appearance. The cardiac silhouette is unremarkable. There are surgical clips noted in the chest. IMPRESSION: No acute findings. Reviewed, Interpreted and Dictated by Yesi Flores MD Transcribed by Rose Perez Authenticated and [facility]
== END 2024-10-29 23:59 | disposition home or self-care (01) ==
LOC: RAD 15:51
PROVIDERS: PCP Nurse Practitioner Family; Visit Provider Nurse Practitioner Family
DX: R06.00 Dyspnea, unspecified (principal); J98.8 Other specified respiratory disorders; B97.89 Other viral agents as the cause of diseases classified elsewhere; R05.9 Cough, unspecified
CPT/HCPCS: 71046

== ENCOUNTER 2025-02-23 10:18 | Day surgery (SDC) | payer MEDICARE, SELFPAY ==
[2025-02-22 16:41] VITALS: BMI 33.6
[2025-02-23] MEDS: TETRACAINE 0.5% OPTH SOL 15ML OP ×3 (11:35→11:45)
[2025-02-23] MEDS: CYCLOPENTOLATE 2% OPHTH SOLN 2ML BOTTLE OP ×3 (11:35→11:45)
[2025-02-23] MEDS: PHENYLEPHRINE 2.5% OPHTH SOLN 2ML OP ×3 (11:35→11:45)
[2025-02-23 11:37] VITALS: BP 161/98; PULSE 70; RESP 18; TEMP 36.4; O2SAT 96
[2025-02-23 12:53] VITALS: BP 166/72; PULSE 62; RESP 16; TEMP 36.6; O2SAT 96
[2025-02-23] MEDS: SODIUM CHLORIDE 0.9% 10ML FLUSH SYRINGE 10 ML IV (12:53)
[2025-02-23] MEDS: MIDAZOLAM 2MG/2ML VIAL 1 MG IV (12:57)
[2025-02-23 12:58] VITALS: BP 158/67; PULSE 65; RESP 16; TEMP 36.6; O2SAT 91
[2025-02-23] MEDS: TIMOLOL 0.5% OPTH SOLN 5ML OP (13:00)
[2025-02-23] MEDS: TOBRAMYCIN/DEX OPTH SUSP 2.5ML OP (13:01)
[2025-02-23] MEDS: LIDOCAINE 1% PF 2ML AMPULE 2 ML IJ (13:01)
[2025-02-23 13:03] VITALS: BP 146/58; PULSE 64; RESP 16; TEMP 36.6; O2SAT 92
[2025-02-23 13:04] VITALS: BP 139/65; PULSE 63; RESP 16; TEMP 36.6; O2SAT 92
[2025-02-23 13:09] VITALS: BP 159/67; PULSE 69; RESP 17; TEMP 36.2; O2SAT 98
--- NOTE | 2025-02-23 13:31 | HMH.PROCNOTE ---
[facility] Procedure Note Date: 02/23/25 Time: 13:31 Procedure Note:: Preoperative Diagnosis: Cataract combined NS Cortical Complex [Right] Eye Postop diagnosis: same Operation: Microscopic phacoemulsification with intraocular lens implant [Right] Eye Specimen: None Blood Loss: None The patient was examined in the office with a complaint of poor vision in the [right] eye. The patient reports that this interferes with ADLs such as reading, watching TV and/or driving or the vision is like looking through a foggy haze and is very troubling. The patient was examined and found to have a visually significant cataract with best corrected vision of [20/400] by refraction and/or glare testing. Treatment options, risks and benefits were explained and the patient elected to have cataract surgery in an attempt to improve their vision. The patient had the eye anesthetized with topical tetracaine, the eye ways prepped and draped in the usual fashion for cataract surgery. A paracentesis and a temporal keratotomy were made. 0.2cc of 1% lidocaine PF was placed into the anterior chamber. And aqueous/viscoelastic exchange was done and a 360 degree capsulorexis was performed. Through hydrodissection and delineation with BSS on a cannula was done. The lens nucleus was phecoemulsified with CDE of [5.90]. Residual cortical material was removed using automated I&A The capsular bag was deepened with viscoelastica and a PCIOL was placed in the capsular bag with good centration and stability. Residual viscoelastic was removed using automated I&A. The keratotomy incision was hydrated with BSS on a cannula. The wound were checked and found to be water tight. IOP was checked digitally and adjusted as needed so as not to be too high. 1 drop of timolol 0.5%, ofloxacin, prednisolone acetate and ketorolac was instilled and eye shield taped over the eye. The patient was taken to recovery in good condition and will be seen postoperatively.
== END 2025-02-23 13:35 | disposition home or self-care (01) ==
PROVIDERS: PCP Nurse Practitioner Family; Visit Provider Ophthalmology
PROC: (CPT 66984; principal; 2025-02-23 14:00)
DX: H25.811 Combined forms of age-related cataract, right eye (principal); E78.00 Pure hypercholesterolemia, unspecified; I10 Essential (primary) hypertension; J45.909 Unspecified asthma, uncomplicated; E03.9 Hypothyroidism, unspecified; Z79.899 Other long term (current) drug therapy; Z79.890 Hormone replacement therapy
CPT/HCPCS: 66984; J2250; V2632

== ENCOUNTER 2025-03-09 09:23 | Day surgery (SDC) | payer MEDICARE, SELFPAY ==
[2025-03-08 11:42] VITALS: BMI 35.4
[2025-03-09] MEDS: TETRACAINE 0.5% OPTH SOL 15ML OP ×3 (10:00→10:10)
[2025-03-09] MEDS: PHENYLEPHRINE 2.5% OPHTH SOLN 2ML OP ×3 (10:00→10:10)
[2025-03-09] MEDS: CYCLOPENTOLATE 2% OPHTH SOLN 2ML BOTTLE OP ×3 (10:00→10:10)
[2025-03-09 10:08] VITALS: BP 170/82; PULSE 66; RESP 20; TEMP 36.3; O2SAT 96
[2025-03-09 10:35] VITALS: BP 130/63; PULSE 60; RESP 16; O2SAT 99
[2025-03-09] MEDS: MIDAZOLAM 2MG/2ML VIAL 1 MG IV (10:35)
[2025-03-09] MEDS: TIMOLOL 0.5% OPTH SOLN 5ML OP (10:38)
[2025-03-09] MEDS: TOBRAMYCIN/DEX OPTH SUSP 2.5ML OP (10:38)
[2025-03-09] MEDS: LIDOCAINE 1% PF 2ML AMPULE 2 ML IJ (10:38)
[2025-03-09] MEDS: SODIUM CHLORIDE 0.9% 10ML FLUSH SYRINGE 10 ML IV (10:38)
[2025-03-09 10:40] VITALS: BP 131/65; PULSE 57; RESP 16; O2SAT 99
[2025-03-09 10:45] VITALS: BP 129/72; PULSE 57; RESP 16; O2SAT 99
[2025-03-09 10:48] VITALS: BP 136/87; PULSE 88; RESP 16; TEMP 36.1; O2SAT 100
--- NOTE | 2025-03-09 10:59 | HMH.PROCNOTE ---
[facility] Procedure Note Date: 03/09/25 Time: 10:59 Procedure Note:: Preoperative Diagnosis: Cataract combined NS Cortical Complex [Left] Eye Postop diagnosis: same Operation: Microscopic phacoemulsification with intraocular lens implant [Left] Eye Specimen: None Blood Loss: None The patient was examined in the office with a complaint of poor vision in the [left] eye. The patient reports that this interferes with ADLs such as reading, watching TV and/or driving or the vision is like looking through a foggy haze and is very troubling. The patient was examined and found to have a visually significant cataract with best corrected vision of [20/400] by refraction and/or glare testing. Treatment options, risks and benefits were explained and the patient elected to have cataract surgery in an attempt to improve their vision. The patient had the eye anesthetized with topical tetracaine, the eye ways prepped and draped in the usual fashion for cataract surgery. A paracentesis and a temporal keratotomy were made. 0.2cc of 1% lidocaine PF was placed into the anterior chamber. And aqueous/viscoelastic exchange was done and a 360 degree capsulorexis was performed. Through hydrodissection and delineation with BSS on a cannula was done. The lens nucleus was phecoemulsified with CDE of [9.99]. Residual cortical material was removed using automated I&A The capsular bag was deepened with viscoelastica and a PCIOL was placed in the capsular bag with good centration and stability. Residual viscoelastic was removed using automated I&A. The keratotomy incision was hydrated with BSS on a cannula. The wound were checked and found to be water tight. IOP was checked digitally and adjusted as needed so as not to be too high. 1 drop of timolol 0.5%, ofloxacin, prednisolone acetate and ketorolac was instilled and eye shield taped over the eye. The patient was taken to recovery in good condition and will be seen postoperatively.
== END 2025-03-09 10:54 | disposition home or self-care (01) ==
PROVIDERS: PCP Nurse Practitioner Family; Visit Provider Ophthalmology
PROC: (CPT 66984; principal; 2025-03-09 11:00)
DX: H25.812 Combined forms of age-related cataract, left eye (principal); I10 Essential (primary) hypertension; E78.00 Pure hypercholesterolemia, unspecified; Z96.1 Presence of intraocular lens; E03.9 Hypothyroidism, unspecified; J45.909 Unspecified asthma, uncomplicated; Z79.899 Other long term (current) drug therapy; Z79.890 Hormone replacement therapy
CPT/HCPCS: 66984; J2250; V2632

== ENCOUNTER 2025-06-29 14:04 | Outpatient (CLI) | payer MEDICARE, SELFPAY ==
[2025-06-29 18:33] LABS: Alanine Aminotransferase 22 U/L (12-78); Albumin Level 4.3 g/dl (3.5-5.0); Albumin/Globulin Ratio 1.8 (1.1-1.8); Alkaline Phosphatase 88 U/L (38-126); Anion Gap 17.0 mEq/L (5-15); Aspartate Amino Transferase 22 U/L (14-36); Bilirubin,Total 0.6 mg/dl (0.2-1.3); Blood Urea Nitrogen 14 mg/dl (7-17); Calcium 10.7 mg/dl (8.4-10.2); Carbon Dioxide 22 mmol/L (22.0-30.0); Chloride 104 mmol/L (98-107); Cholesterol 158 mg/dl (140-200); Creatinine,Serum 0.70 mg/dl (0.52-1.04); Estimated Glomerular Filt Rate 80 ml/min (>60); GFR (African American) 97 ML/MIN (>60); Globulin 2.4 g/dL (1.3-3.2); Glucose 109 mg/dl (74-100); HDL Cholesterol 45 mg/dl (40-60); Potassium 5.0 mmoL/L (3.5-5.1); Sodium 138 mmol/L (136-145); Total Protein,Serum 6.7 g/dl (6.3-8.2); Triglycerides 211 mg/dl (30-150)
[2025-06-29 18:56] LABS: Free T4 (Free Thyroxine) 1.28 ng/dl (0.78-2.19)
[2025-06-29 18:57] LABS: T4 (Thyroxine) 8.7 ug/dl (5.53-11.0)
[2025-06-29 19:04] LABS: Thyroid Stimulating Hormone 1.50 uIU/mL (0.465-4.68)
[2025-07-01 08:14] LABS: Triiodothyronine (T3) Free 2.7 pg/mL (2.0-4.4)
--- OUTSIDE RECORDS SUMMARY | 2025-07-01 09:04 | XMS_ITS | Encounter Summary ---
Author Organization [facility] Address [address] [place] [address] Care Team Providers Care Coding Auditor Name Role Phone Radha Sanchez APRN Primary Care Provider [phone] Encounter Details Date Type Department Care Team (Latest Contact Info) Description 08/30/2022 Nurse Navigator [facility] NURSE NAVIGATOR [address] [place] [address] Carmela Shah, RN Malignant neoplasm of left breast in female, estrogen receptor negative, unspecified site of breast (Primary Dx) Social History Tobacco Use Types Packs/Day Years Used Date Smoking Tobacco: Never Smokeless Tobacco: Never Alcohol Use Standard Drinks/Week Comments Not Currently 0 (1 standard drink = 0.6 oz pur e alcohol) Comments Unknown Sex and Gender Information Value Date Recorded Sex Assigned at Not on file Legal Sex Female 11:48 AM EDT Gender Identity Not on file Sexual Orientation Not on file documented as of this encounter Plan of Treatment Not on file documented as of this encounter Visit Diagnoses Diagnosis Malignant neoplasm of left breast in female, estrogen receptor negative, unspecified site of breast- Primary documented in this encounter Care Teams Coding Auditor Relationship Specialty Start Date End Date Radha Sanchez APRN PCP - General Internal Medicine 08/28/22 documented as of this encounter
--- OUTSIDE RECORDS SUMMARY | 2025-07-01 09:04 | XMS_ITS | Clinical Summary ---
Author Organization [facility] Address [address] [place] [address] Care Team Providers Care Real Estate Coordinator Name Role Phone Radha Sanchez APRN Primary Care Provider [phone] Allergies No known active allergies Medications hydroxychloroqui ne (PLAQUENIL) 200 MG tablet Take 1 tablet by mouth 2 (Two) Times a Day. 06/10/2020 Active levothyroxine (SYNTHROID, LEVOTHROID) 75 MCG tablet Take 1 tablet by mouth Daily. 06/14/2020 Active lisinopril (PRINIVIL,ZESTRI L) 40 MG tablet Take 1 tablet by mouth Daily. 06/14/2020 Active atorvastatin (LIPITOR) 10 MG tablet Take 1 tablet by mouth Daily. 06/21/2022 Active ascorbic acid (VITAMIN C) 500 MG tablet Take 500 mg by mouth Daily. Active Cholecalciferol (Vitamin D-3) 25 MCG (1000 UT) capsule Take 1,000 Units by mouth Daily. Active albuterol sulfate HFA 108 (90 Base) MCG/ACT inhaler INHALE 1 PUFF BY MOUTH EVERY 4 HOURS NEEDED 09/21/2022 Active Active Problems Problem Noted Date Diagnosed Date Breast cancer, left 09/20/2022 Primary hyperparathyroidism 07/06/2020 Overview (05/16/2023): Calcium 11.2 Pth 135 Normal urine calcium Normal egfr Osteopenia Assessment & Plan (05/16/2023 12:51 PM EDT): Lab studies are diagnostic of primary hyperpara. The treatment would be parathyroidectomy if indicated INDICATIONS FOR SURGICAL REFERRAL: AGE<55 CALCIUM >1 POINT ABOVER NORMAL- CONSISTENTLY HYPERCALCIURIA WORSENING EGFR KIDNEY STONES OSTEROPOROSIS AT THIS POINT, SHE DOES NOT MEET THOSE CRITERIA. HER CALCIUM IS RIGHT AT 1 POINT ABOVE NORMAL SHE NEEDS CALCIUM CHECKED TODAY AND THEN EVERY 6-12 MONTHS IF AT ANY POINT SHE MEETS SURGICL CRITERIA SHE OUGHT TO BE SENT TO AN EXPERIENCED PARATHYROID SURGEON Vitamin D deficiency 07/06/2020 Acquired hypothyroidism 07/06/2020 Family History Medical History Relation Name Comments Dementia Brother Asthma Daughter 1 Asthma Daughter 2 Hypertension Daughter 3 Thyroid disease Daughter 3 Brain cancer Father Colon cancer Mother Hypertension Mother Lung cancer Sister 1 No Known Problems Son 1 No Known Problems Son 2 Relation Name Status Comments Brother Daughter 1 Alive Daughter 2 Alive Daughter 3 Alive Father Mother Sister 1 Alive Sister 2 Alive Son 1 Alive Son 2 Alive Social History Tobacco Use Types Packs/Day Years Used Date Smoking Tobacco: Never Smokeless Tobacco: Never Tobacco Cessation:Counseling Given: Not Answered Alcohol Use Standard Drinks/Week Comments Not Currently 0 (1 standard drink = 0.6 oz pur e alcohol) AUDIT-C Answer Date Recorded Q1: How often do you have a drink containing alcohol? Never 09/20/2022 Q2: How many drinks containi ng alcohol do you have on a typical day when you are drinking? Patient does not drink Q3: How often do you have si x or more drinks on one occasion? Never 09/20/2022 PHQ-2 Answer Date Recorded Retired PHQ-9: Brief Depression Severity Measure Score 1 10/02/2022 Abuse Screen Answer Date Recorded Unsafe at Home or Work/School Not on file Feels Threatened by Someone? Not on file 08/2024 Does Anyone Keep You from Co ntacting Others or Doint Things Outside the Home? Not on file 09/27/2023 Physical Sign of Abuse Present Not on file 0 09/27/2023 Housing Stability Answer Date Recorded Current Living Arrangements Not on file 09/16 Potentially Unsafe Housing Conditions Not on jayashree e 09/27/2023 Family and Community Support Answer Dave e Recorded Help with Day-to-Day Activities Not on file 06/24/2023 Lonely or Isolated Not on file 06/24/2023 Employment Answer Date Recorded Do you want help finding or keeping work or a anthony b? Not on file 06/24/2023 Disabilities Answer Date Recorded Concentrating, Remembering, or Making Decisions Difficulty Not on file 09/27/2023 Doing Errands Independently Difficulty Not on fi le 09/27/2023 Education Answer Date Recorded Help with school or training? Not on file Preferred Language Not on file 09/13/2023 PHQ-2 Answer Date Recorded Retired PHQ-9: Brief Depression Severity Measure Score 1 10/02/2022 Comments Unknown Sex and Gender Information Value Date Recorded Sex Assigned at Not on file Legal Sex Female 11:48 AM EDT Gender Identity Not on file Sexual Orientation Not on file Last Filed Vital Signs Vital Sign Reading Time Taken Comments Blood Pressure 130/78 05/16/2023 9:53 AM EDT Pulse 67 05/16/2023 9:53 AM EDT Temperature 36.1 C (96.9 F) 10/02/2022 9:40 AM EST Respiratory Rate 16 09/21/2022 10:29 AM EST Oxygen Saturation 97% 05/16/2023 9:53 AM EDT Inhaled Oxygen Concentration - - Weight 84.4 kg (186 lb) 05/16/2023 9:53 AM EDT Height 160 cm (5' 3 ) 05/16/2023 9:53 AM EDT Body Mass Index 32.95 05/16/2023 9:53 AM EDT Plan of Treatment Health Maintenance Due Date Last Done Comments DXA SCAN 1943 TDAP/TD VACCINES (1 - Tdap) 1962 Pneumococcal Vaccine 50+ (2 of 2 - PCV) 06/14/2017 06/14/2016 RSV Vaccine - Adults (1 - 1- dose 75+ series) 2018 ANNUAL WELLNESS VISIT 07/06/2020 INFLUENZA VACCINE 04/16/2025 06/20/2022, , 06/14/2016 COVID-19 Vaccine (3 - 2024-2 6 season) 2025 03/06/2021, 02/06/2021 MAMMOGRAM Discontinued 08/30/2022, 08/16, 08/30/2022, Additional history exists ZOSTER VACCINE Completed 01/09/2023, 06/20/2022 Medical Devices Implanted Type Area Pl Sql Developer Device Identifier Shelf Expiration Date Model / Serial / Lot Prt Intro Vasc/Interv Vortex Fill/Hl Detach/Polyu ret/Cath 8f - [id number] Implanted:Qt y: 1 on 09/20/2022 by Jonathan Anderson MD at [facility] Implant Right: [employer] [id number] 06/15/2025 [id number] / / [id number] Procedures Procedure Name Priority Date/Time Associated Diagnosis Comments MAMMO OUTSIDE FILMS Routine 08/30/2022 3 :05 PM EST H/O mammogram from Last 3 Months or Most Recently Relevant to Health Maintenance Results * MAMMO Outside Films (08/30/2022 3:05 PM EST) Narrative SYSTEMGENERATED, DOCUMENTATION - 08/30/2022 3:05 PM EST This procedure was auto-finalized with no dictation required. Radha Sanchez REFINERY SUPERINTENDENT IMG MAMMOGRAPHY ORDERABLES F inal Result from Last 3 Months or Most Recently Relevant to Health Maintenance Insurance MEDICARE REPLACE Advance Directives * CPR (Attempt to Resuscitate) (Latest Code Status on File) Date Activated Date Inactivated Comments 09/20/2022 12:31 PM 09/21/2022 1:52 PM Question Answer Comments Code Status (Patient has no pulse and is not breathing): CPR (Attempt to Resuscitate) Medical Interventions (Patie nt has pulse or is breathing): Full Support Release to patient: Routine Release Care Teams Real Estate Coordinator Relationship Specialty Start Date End Date Radha Sanchez APRN PCP - General Internal Medicine 08/28/22
--- OUTSIDE RECORDS SUMMARY | 2025-07-01 09:04 | XMS_ITS | Data Portability ---
Author Organization [facility] [place] [facility] Address [address] [facility] [address] [place] [address] Assessment No assessment recorded. Plan of Treatment Reminders Order Date Submit Date Provider Last Modified By Organization Details Last Modified Time Details Appointments FOLLOW UP BENIGN 2025 10:15A M DEMARCUS ANDERSON MD Not available Not available Not available Lab None recorded. Referral None recorded. Procedures None recorded. Surgeries None recorded. Imaging US, breast, unilatera l - History Rt BC 1995, Hx Lt BC 2021. New left breast pain with possible mass at chest wall under lateral mastectom y scar. Schedule with Dr. Anderson same day, previous Gerald Surg pt 2024 025 [facility] Radiology [facility], [address] [place] [address], [phone], 01/26/2025 09:28:25 Medication Orders None recorded. Patient TargetsNo targets recorded. Patient InstructionsNo instructions recorded. Reason for Referral None Reported. 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 Negati ve margin s. Negati ve sentin el lymph node biopsy on the left. No chemot herapy . New onset pain left mastec sofia bed. PROCED URE: Target ed left breast ultras ound. COMPAR CHRISTOPHER: Outsid e left mammog cordelia 2021 ULTRAS OUND FINDIN GS: Target ed left breast ultras ound was perfor med by the techno logist and myself . The entire mastec sofia bed and area of focal pain was evalua elif. No suspic ious findin gs identi fied. Expect ed scar tissue is presen t at the site of focal pain. IMPRES ÁLVARO: Expect ed post mastec sofia change with scar tissue noted in the area of focal pain. No suspic ious findin g. BI-RAD S Catego ry 2, Benign findin g, routin e clinic al manage ment.. The patien t has been entere d into an automa elif remind er system . COMMEN T: Findin gs and recomm endati ons were discus sed with the patien t and she was provid ed with a callieitte n summar y. Interp reted By: Alejandra currie MD Electr onical ly Signed By: Alejandra currie MD on 025 9:23 AM [facility] Radiology [address], [phone], 01/26/2025 09:55:00 Result Notes None recorded. Problems Name Problem SNOMED Code Status Onset Date Resolution Date Notes Provider Name and Address Organization Details Recorded Time Pain of left breast 9789264773 Active 2024 DEMARCUS ANDERSON MD [address] [place] [address], [phone] [place] [address] 12:42:10 Malignant neoplasm of overlapping sites of breast 773842277 Active 2024 DEMARCUS ANDERSON MD [address] [place] [address], [phone], [facility] 12:42:42 Problem Notes None recorded. Procedures Surgical History Date Name Laterality Status Provider Name and Address Organization Details Recorded Time 01/27/20 Date of Last Mammogram completed [facility] 01/26/2025 09:39:49 hernia repair completed [facility] 01/15/2025 11:06:25 hysterectomy completed [facility] 01/15/2025 11:06:31 biopsy of breast completed [facility] 01/15/2025 11:06:37 excision of breast completed [facility] 01/15/2025 11:07:10 Imaging Results None recorded. Procedure Notes None recorded. Medical Equipment None Reported. Allergies No known drug allergies Medications Name Sig Start Date Stop Date Status Note LastModified by Organization Details LastModified Time atorvastatin 10 mg tablet Take 1 tablet every day by oral route. active Not Available Not Available No t Available Synthroid 175 mcg tablet Take 1 tablet every day by oral route. active Not Available Not Available No t Available lisinopril-hyd rochlorothiazi de 0.125 mg-25 mg tablet Take 1 tablet every day by oral route. active Not Available Not Available No t Available Allergy active Not Available Not Avail able Not Available Vitals Date Recorded Body height Body mass index (BMI) Body weight Heart rate Oxygen saturation Oxygen saturation in Arterial blood by Pulse oximetry Systolic And Diastolic Provider Name and Address Organization Details Last Updated DateTime 5 160.02 cm 33.2 kg/m2 65931.8 7 g 71 /min 99 % 99 % 130/84 mm[Hg] [facility] 11:15:13 Date Recorded Body height Body mass index (BMI) Body weight Heart rate Oxygen saturation Oxygen saturation in Arterial blood by Pulse oximetry Systolic And Diastolic Provider Name and Address Organization Details Last Updated DateTime 5 160.02 cm 33.1 kg/m2 12887.7 7 g 86 /min 98 % 98 % 136/86 mm[Hg] [facility] 09:39:11 Social History Question Answer Notes LastModified by Organizat ion Details LastModified Time What Was The Date Of Your Most Recent Tobacco Screening? 01/26/2025 [email or web address] Information not available 01/26/2025 Has Tobacco Cessation Counseling Been Provided? No Information not available 01/26/2025 Sex: Unknown Functional Status Question Answer Note LastModified by Organizat ion Details LastModified Time Do you use any illicit or recreational drugs? No [email or web address] Information not available 01/26/2025 Do you or have you ever used any other forms of tobacco or nicotine? No [email or web address] Information not available 01/26/2025 Are you currently employed? No [email or web address] Information not available 01/26/2025 Mental Status None recorded. Family History Relationship Description Onset Age of this Age Resolved Age Notes LastModified by Organization Details LastModified Time Mother Malignant neoplasm of colon [email or web address] Not available 2024 11:07:20 Mother Sepsis [email or web address] Not available 01/15/2025 11:07:27 Father Neoplasm of brain [email or web address] Not available 2024 11:07:36 Sister Malignant neoplasm of lung [email or web address] Not available 2024 11:07:44 Brother Alzheimer's disease [place] [email or web address] Not available 2024 11:07:51 Medical History Condition Response Other Hypertension Y Asthma Y Breast Cancer Y Gynecological History Statement/Question Response # of Pregnancies 5 Age at first live 16 Date of Last Mammogram 01/26/2025 # of Births 5 Obstetrics History GPAL:G 5 P 5 0 0 0 Type Value Full Term 5 Total 5 Past Encounters Encounter ID Performer Location Encounter Start Date Encounter Closed Date Diagnosis/Indication Diagnosis SNOMED-CT Code Diagnosis ICD10 Code Diagnosis IMO Codes Diagnosis Note [id number] LUCA GRANDE APRN BREAST SURGERY [address] [place] [address] 01/15/2025 10:59:29 01/20/2025 05:02:51 History of malignant neoplasm of breast 206299739 Z85.3 30015589 73973639 Pain of left breast 1010 631137 N64.4 [id number] Patient and I discussed her history, recent symptoms, and today's physical exam findings. There are no distinct masses, skin changes, or palpable adenopathy . Her pain has gotten better since onset of symptoms which is reassuring , but given her history further work-up is warranted. There is a dense area which feels fixed to chest wall in area of concern. This could be scar tissue, but I cannot rule out recurrence . I recommend left breast ultrasound for further evaluation , to be done at next available appointmen t. I recommend that she see Dr. Anderson in clinic the same day as her ultrasound to review results and discuss next steps. She v/u and agrees with plan. [id number] DEMARCUS ANDERSON MD BREAST SURGERY [address] [place] [address] 01/26/2025 09:38:41 01/26/2025 12:57:55 Malignant neoplasm of overlapping sites of breast 138892255 C50.812 [id number] Assessment : Patient has a history of having a triple negative left breast cancer status postmastec sofia. Based on exam today she has nothing concerning and based on ultrasound the area of palpable is likely benign fat necrosis and scar tissue. I reassured the patient and the family and I recommende d that we continue to see her on a yearly basis. Plan: Patient is agreeable to be seen and will follow-up in 1 year. She knows to call in the interim if there is any concerns. Health Concerns Section Related Observation LastModified by Organization Detai ls LastModified Time None Recorded Concern Status LastModified by Organization Details LastModified Time None Recorded Advance Directives Directive None Recorded Payers Insurance Date Sequence Insurance Name Policy Number Policy Bond Covered Member ID Bond Member ID Guarantor Name 01/26/2025 1 [facility] (MEDICARE REPLACEMENT/A DVANTAGE - PPO) [id number] Shashank Rollins [id number] Shashank Rollins Notes Date Note Type Note Provider Name and Address Organization Details Recorded Time 01/15/2025 text/html Shashank Rollins is an 79 yo female, new to this office, who presents with c/o pain in the left lateral breast and left axilla. She reports symptoms began about 3 weeks ago, comes and goes. She notes pain was worse when it onset and has gotten somewhat better over time, now just sore to touch. She has not have any imaging since onset of symptoms. Denies palpable masses or skin changes. Her personal history is remarkable for 2 primary breast cancers and endometrial cancer. She had right breast cancer in 1995 for which she underwent right mastectomy and axillary lymph node dissection. She was treated with adjuvant chemotherapy, no radiation, and Tamoxifen x 5 years. She was diagnosed with endometrial cancer in 2015 after new onset vaginal bleeding, early stage, s/p hysterectomy with Dr. Cher Neff at [facility], no chemotherapy or radiation needed. Then, in late 2021 she was diagnosed with left triple-negative breast cancer first detected on screening mammogram. She underwent right mastectomy and sentinel lymph node biopsy by Dr. Demarcus Anderson in 09/2022. Final pathology demonstrated a grade 3 IDC with negative margins and negative sentinel lymph node. She was seen by Dr. Cristoabl at [facility] in consideration of adjuvant chemotherapy. she eventually elected against chemotherapy and was lost to follow-up. She has had negative genetic testing. She presents today for evaluation of her new onset pain given her history. She denies other bony pain, respiratory changes, cough, or other new pain. LUCA GRANDE, COATER HELPER [address] [place], [address], [facility] 01/19/2025 16:01:45 01/26/2025 text/html Interval history 01/26/2025: Patient has had bilateral mastectomy for a left triple negative breast cancer in 2021. After the mastectomy she has always had a little crevice or dimple in the lateral left mastectomy site and more recently she has noticed some thickening and tenderness laterally. Luca saw her and ordered an ultrasound and that was performed today and the area returned as benign appearing fat necrosis. Patient reports that the area has improved. History: Shashank Rollins is an 79 yo female, new to this office, who presents with c/o pain in the left lateral breast and left axilla. She reports symptoms began about 3 weeks ago, comes and goes. She notes pain was worse when it onset and has gotten somewhat better over time, now just sore to touch. She has not have any imaging since onset of symptoms. Denies palpable masses or skin changes. Her personal history is remarkable for 2 primary breast cancers and endometrial cancer. She had right breast cancer in 1995 for which she underwent right mastectomy and axillary lymph node dissection. She was treated with adjuvant chemotherapy, no radiation, and Tamoxifen x 5 years. She was diagnosed with endometrial cancer in 2015 after new onset vaginal bleeding, early stage, s/p hysterectomy with Dr. Cher Neff at [facility], no chemotherapy or radiation needed. Then, in late 2021 she was diagnosed with left triple-negative breast cancer first detected on screening mammogram. She underwent right mastectomy and sentinel lymph node biopsy by Dr. Demarcus Anderson in 09/2022. Final pathology demonstrated a grade 3 IDC with negative margins and negative sentinel lymph node. She was seen by Dr. Cristobal at [facility] in consideration of adjuvant chemotherapy. she eventually elected against chemotherapy and was lost to follow-up. She has had negative genetic testing. She presents today for evaluation of her new onset pain given her history. She denies other bony pain, respiratory changes, cough, or other new pain. DEMARCUS ANDERSON MD [address] [place] [address], [phone], [facility] 01/26/2025 12:43:52 OBGyn Episode No OBEpisode recorded.
--- OUTSIDE RECORDS SUMMARY | 2025-07-01 09:04 | XMS_ITS | Encounter Summary ---
[facility] Organization [facility] Address [address] [place] [address] Care Team Providers Care Top Coater Name Role Phone Radha Sanchez GERBER Primary Care Provider [phone] Encounter Details Date Type Department Care Team (Late st Contact Info) Description 09/25/2022 MDT Assessment [facility] HEMATOLOGY & ONCOLOGY [address] [place] [address] Jonathan Anderson MD [address] [address] Social History Tobacco Use Types Packs/Day Years [...] more drinks on one occasion? Never 09/20/2022 Abuse Screen Answer Date Recorded Feels Unsafe at Home or Work/School no 09/20/2022 Feels Threatened by Someone no 01/2023 Does Anyone Try to Keep You From Having Contact with Others or Doing Things Outside Your Home? no 09/20/2022 Physical Signs of Abuse Present no 09/20/2022 Housing Stability Answer Date Recorded Current Living Arrangements home 01/2023 Potentially Unsafe Housing Conditions Not on [email or web address] e 09/20/2022 Disabilities Answer Date Recorded Difficulty Concentrating, Remembering or Making Decisions no 09/20/2022 Difficulty Managing Errands Independently no 09/20/2022 Education Answer Date Recorded Help with school or training? Not on file Preferred Language Tajik 09/12/2022 Comments Unknown Sex and Gender Information Value Date Recorded Sex Assigned at Not on file Legal Sex Female 11:48 AM EDT Gender Identity Not on file Sexual Orientation Not on file documented as of this encounter Plan of Treatment Not on file documented as of this encounter Visit Diagnoses Not on filedocumented in this encounter Care Teams Top Coater Relationship Specialty Start Date End Date Radha Sanchez APRN PCP - General Internal Medicine 08/28/22 documented as of this encounter
== END 2025-06-29 23:59 ==
LOC: LAB.DROPOF 07-01 08:57
PROVIDERS: PCP Nurse Practitioner Family; Visit Provider Nurse Practitioner Family
DX: E78.5 Hyperlipidemia, unspecified (principal); E07.9 Disorder of thyroid, unspecified; I10 Essential (primary) hypertension
CPT/HCPCS: 80053; 80061; 84436; 84439; 84443; 84481

== ENCOUNTER 2025-07-21 11:30 | Outpatient (CLI) | payer MEDICARE, SELFPAY ==
--- OUTSIDE RECORDS SUMMARY | 2025-07-22 19:42 | XMS_ITS | Encounter Summary ---
[facility] Address [address] [place] [address] Care Team Providers Care Plate Driller Name Role Phone Radha Sanchez GERBER Primary Care Provider [phone] Encounter Details Date Type Department Care Team (Late st Contact Info) Description 09/25/2022 MDT Assessment [facility] HEMATOLOGY & ONCOLOGY [address] [place] [address] Jonathan Anderson MD [address] [address] Social History Tobacco Use Types [...] or training? Not on file Preferred Language German 09/12/2022 Comments Unknown Sex and Gender Information Value Date Recorded Sex Assigned at Not on file Legal Sex Female 11:48 AM EDT Gender Identity Not on file Sexual Orientation Not on file documented as of this encounter Plan of Treatment Not on file documented as of this encounter Visit Diagnoses Not on filedocumented in this encounter Care Teams Plate Driller Relationship Specialty Start Date End Date Radha Sanchez APRN PCP - General Internal Medicine 08/28/22 documented as of this encounter
--- OUTSIDE RECORDS SUMMARY | 2025-07-22 19:43 | XMS_ITS | Clinical Summary ---
Author Organization [facility] Address [address] [place] [address] Care Team Providers Care Swimming Coach Name Role Phone Radha Sanchez APRN Primary Care Provider [phone] Allergies No known active allergies Medications hydroxychloroqui [...] 75+ series) 2018 ANNUAL WELLNESS VISIT 07/06/2020 COVID-19 Vaccine (3 - Modern a risk series) 04/03/2021 03/06/2021, 02/06/2021 INFLUENZA VACCINE 04/16/2025 06/20/2022, , 06/14/2016 MAMMOGRAM Discontinued 08/30/2022, 08/16, 08/30/2022, Additional history exists ZOSTER VACCINE Completed 01/09/2023, 06/20/2022 Medical Devices Implanted Type Area Batch Trucker Device Identifier Shelf Expiration Date Model / Serial / Lot Prt Intro Vasc/Interv Vortex Fill/Hl Detach/Polyu ret/Cath 8f - [id number] Implanted:Qt y: 1 on 09/20/2022 by Jonathan Anderson MD at [facility] Implant Right: Subclavian [employer] [id number] 06/15/2025 [id number] / / [id number] Procedures Procedure Name Priority Date/Time Associated Diagnosis Comments MAMMO OUTSIDE FILMS Routine 08/30/2022 3 :05 PM EST H/O mammogram from Last 3 Months or Most Recently Relevant to Health Maintenance Results * MAMMO Outside Films (08/30/2022 3:05 PM EST) Narrative SYSTEMGENERATED, DOCUMENTATION - 08/30/2022 3:05 PM EST This procedure was auto-finalized with no dictation required. Radha Sanchez LOC[employer] RE[employer]ATED TRUCK DRIVER IMG MAMMOGRAPHY ORDERABLES F inal Result from [...] Release to patient: Routine Release Care Teams Swimming Coach Relationship Specialty Start Date End Date Radha Sancehz APRN PCP - General Internal Medicine 08/28/22
--- OUTSIDE RECORDS SUMMARY | 2025-07-22 19:43 | XMS_ITS | Data Portability ---
Author Organization [facility], [facility] [place] [facility] Address [address] [facility] [address] [place] [address] Assessment No assessment recorded. Plan of Treatment [...] day, previous Gerald Surg pt 2024 025 [facility] Radiology [facility], [address] [place] [address], [phone], 01/26/2025 09:28:25 Medication Orders None recorded. Patient TargetsNo targets recorded. Patient InstructionsNo instructions recorded. Reason for Referral None Reported. Results Created Date Observation Date Name Description Value Unit Range Abnormal Flag Note LastModifiedBy Organization Detail LastModifiedTime 01/27/2001/26/2025 US, breas t, unila teral [address] [address] Misa luciano Name: SHASHANK luciano : 1944 [...] Alejandra currie MD on 025 9:23 AM [facility] Radiology [address], [address], 01/26/2025 09:55:00 Result Notes None recorded. Problems Name Problem SNOMED Code Status Onset Date Resolution Date Notes Provider Name and Address Organization Details Recorded Time Pain of left breast 4673328111 Active 2024 DEMARCUS ANDERSON MD [address] [place] [address], [phone] [place] [address] 12:42:10 Malignant neoplasm of overlapping sites of breast 442145303 Active 2024 DEMRACUS ANDERSON MD [address] [place] [address], [phone], [facility] 12:42:42 Problem Notes None recorded. Procedures Surgical History Date Name Laterality Status Provider Name and Address Organization Details Recorded Time 01/27/20 Date of Last Mammogram completed [facility] 01/26/2025 09:39:49 hernia repair completed [facility] 01/15/2025 11:06:25 hysterectomy completed [facility] 01/15/2025 11:06:31 biopsy of breast completed [facility] 01/15/2025 11:06:37 excision of breast completed [facility] 01/15/2025 11:07:10 Imaging Results None recorded. Procedure [...] Updated DateTime 5 160.02 cm 33.2 kg/m2 29173.8 7 g 71 /min 99 % 99 % 130/84 mm[Hg] [facility] 11:15:13 Date Recorded Body height Body mass index (BMI) Body weight Heart rate Oxygen saturation Oxygen saturation in Arterial blood by Pulse oximetry Systolic And Diastolic Provider Name and Address Organization Details Last Updated DateTime 5 160.02 cm 33.1 kg/m2 11171.7 7 g 86 /min 98 % 98 % 136/86 mm[Hg] [facility] 09:39:11 Social History Question Answer Notes LastModified by Organizat ion Details LastModified Time What Was The Date Of Your Most Recent Tobacco Screening? 01/26/2025 [email or web address] Information not available 01/26/2025 Has Tobacco Cessation Counseling Been Provided? No [email or web address] Information not available 01/26/2025 Sex: Unknown Functional Status Question Answer Note LastModified by Organizat ion Details LastModified Time Do you use any illicit or recreational drugs? No [email or web address] Information not available 01/26/2025 Do you or have you ever used any other forms of tobacco or nicotine? No [email or web address] Information not available 01/26/2025 Are you currently employed? No [email or web address] Information not available 01/26/2025 Mental Status None recorded. Family History Relationship Description Onset Age of this Age Resolved Age Notes LastModified by Organization Details LastModified Time Mother Malignant neoplasm of colon [email or web address] Not available 2024 11:07:20 Mother Sepsis [email or web address] Not available 01/15/2025 11:07:27 Father Neoplasm of brain [email or web address] Not available 2024 11:07:36 Sister Malignant neoplasm of lung [email or web address] Not available 2024 11:07:44 Brother Alzheimer's disease [email or web address] Not available 2024 11:07:51 Medical History Condition [...] ICD10 Code Diagnosis IMO Codes Diagnosis Note [id number] LUCA GRANDE APRN BREAST SURGERY [address] [place] [address] 01/15/2025 10:59:29 01/20/2025 05:02:51 History of malignant neoplasm of breast 678653767 Z85.3 51203967 86676053 Pain of left breast 1010 015872 N64.4 [id number] Patient and I discussed her history, recent [...] steps. She v/u and agrees with plan. [id number] DEMACRUS ANDERSON MD BREAST SURGERY [address] [place] [address] 01/26/2025 09:38:41 01/26/2025 12:57:55 Malignant neoplasm of overlapping sites of breast 889194451 C50.812 [id number] Assessment : Patient has a history of [...] Bond Member ID Guarantor Name 01/26/2025 1 [facility] (MEDICARE REPLACEMENT/A DVANTAGE - PPO) [id number] Shashank Rollins [id number] Shashank Rollins Notes Date Note Type Note [...] She was seen by Dr. Cristobal at [facility] in consideration of adjuvant chemotherapy. she eventually elected against chemotherapy and was lost to follow-up. She has had negative genetic testing. She presents today for evaluation of her new onset pain given her history. She denies other bony pain, respiratory changes, cough, or other new pain. LUCA GRANDE, SANITATION ENGINEER [address] [place], [address], [facility] 01/19/2025 16:01:45 01/26/2025 text/html Interval history [...] She was seen by Dr. Cristobal at [facility] in consideration of adjuvant chemotherapy. she eventually elected against chemotherapy and was lost to follow-up. She has had negative genetic testing. She presents today for evaluation of her new onset pain given her history. She denies other bony pain, respiratory changes, cough, or other new pain. DEMARCUS ANDERSON MD [address] [place] [address], [phone], [facility] 01/26/2025 12:43:52 OBGyn Episode No OBEpisode recorded.
--- OUTSIDE RECORDS SUMMARY | 2025-07-22 19:43 | XMS_ITS | Encounter Summary ---
[facility] Address [address] [place] [address] Care Team Providers Care Us Marketing Director Name Role Phone Radha Sanchez APRN Primary Care Provider [phone] Encounter Details Date Type Department Care Team (Latest Contact Info) Description 08/30/2022 Nurse Navigator [facility] NURSE NAVIGATOR [address] [place] [address] Carmela Shah, RN Malignant neoplasm [...] Primary documented in this encounter Care Teams Us Marketing Director Relationship Specialty Start Date End Date Radha Sanchez APRN PCP - General Internal Medicine 08/28/22 documented as of this encounter
== END 2025-07-21 23:59 | disposition home or self-care (01) ==
LOC: LAB.DROPOF 07-22 19:41
PROVIDERS: PCP Nurse Practitioner Family; Visit Provider Nurse Practitioner Family
DX: N39.0 Urinary tract infection, site not specified (principal)
CPT/HCPCS: 87086; 87088; 87186

== ENCOUNTER 2025-08-03 12:03 | Outpatient (CLI) | payer MEDICARE, SELFPAY ==
--- NOTE | 2025-08-03 12:06 | XR_ITS ---
FINAL REPORT CLINICAL HISTORY: rule out vertebral fracture COMPARISON: None FINDINGS: Two views of the thoracic spine were obtained. There is no fracture present. The vertebrae are normal in height. There is no malalignment. There is mild anterior osteophyte formation in the mid and lower thoracic spine. IMPRESSION: Mild osteophyte formation without acute bony abnormality of the thoracic spine. Reviewed, Interpreted and Dictated by Loyd Pierre MD Transcribed by Kerry Humphrey Authenticated and [facility]
--- NOTE | 2025-08-03 12:06 | XR_ITS ---
FINAL REPORT CLINICAL HISTORY: rule out vertebral fracture COMPARISON: None FINDINGS: 3 views of the lumbar spine were obtained. There is mild lumbar scoliosis convex to the right measuring 10 degrees. There is no evidence of fracture. There is no malalignment. Mild anterior osteophyte formation at L2-3, L3-4, and L4-5. There are moderate hypertrophic changes of degenerative disc disease at L5-S1 with lower lumbar facet sclerosis. IMPRESSION: Degenerative/chronic changes without acute bony abnormality. Reviewed, Interpreted and Dictated by Loyd Pierre MD Transcribed by Kerry Humphrey Authenticated and . [facility]
[2025-08-03 13:35] LABS: Albumin Level 4.6 g/dl (3.5-5.0); Anion Gap 10.4 mEq/L (5-15); Blood Urea Nitrogen 15 mg/dl (7-17); Calcium 11.0 mg/dl (8.4-10.2); Carbon Dioxide 25 mmol/L (22.0-30.0); Chloride 105 mmol/L (98-107); Creatinine,Serum 0.80 mg/dl (0.52-1.04); Estimated Glomerular Filt Rate 69 ml/min (>60); GFR (African American) 83 ML/MIN (>60); Glucose 119 mg/dl (74-100); Magnesium 2.1 mg/dl (1.6-2.3); Phosphorous 3.0 mg/dl (2.5-4.5); Potassium 4.4 mmoL/L (3.5-5.1); Sodium 136 mmol/L (136-145)
[2025-08-03 13:50] LABS: 25-OH Vitamin D, Total 32.7 ng/mL (30-100)
[2025-08-04 15:23] LABS: Albumin 3.8 g/dL (2.9-4.4); Alpha-1-Globulin 0.2 g/dL (0.0-0.4); Alpha-2-Globulin 0.8 g/dL (0.4-1.0); Gamma Globulin 0.9 g/dL (0.4-1.8)
[2025-08-04 17:24] LABS: Calcium, Ionized 5.8 mg/dL (4.5-5.6)
== END 2025-08-03 23:59 | disposition home or self-care (01) ==
LOC: LAB 12:04
PROVIDERS: PCP Nurse Practitioner Family; Visit Provider Student in an Organized Health Care Education/Training Program
DX: E21.0 Primary hyperparathyroidism (principal); R79.89 Other specified abnormal findings of blood chemistry
CPT/HCPCS: 36415; 72070; 72100; 80069; 82306; 82330; 82523; 83735; 84080; 84155; 84165

== ENCOUNTER 2025-08-05 10:02 | Outpatient (CLI) | payer MEDICARE, SELFPAY ==
--- OUTSIDE RECORDS SUMMARY | 2025-08-05 10:54 | XMS_ITS | Data Portability ---
Author Organization [facility], [facility] Address [address] [facility] [facility] [place] [address] Assessment No assessment recorded. Plan of Treatment [...] day, previous Gerald Surg pt 2024 025 [facility] Radiology [facility], [address] [place] [address], [phone], 01/26/2025 09:28:25 Medication Orders None recorded. Patient TargetsNo targets recorded. Patient InstructionsNo instructions recorded. Reason for Referral None Reported. Results Created Date Observation Date Name Description Value Unit Range Abnormal Flag Note LastModifiedBy Organization Detail LastModifiedTime 01/27/2001/26/2025 US, breas t, unila teral [address] [address] Misa luciano Name: SHASHANK luciano : 1944 [...] Alejandra currie MD on 025 9:23 AM [facility] Radiology [address], [address], 01/26/2025 09:55:00 Result Notes None recorded. Problems Name Problem SNOMED Code Status Onset Date Resolution Date Notes Provider Name and Address Organization Details Recorded Time Pain of left breast 3514224784 Active 2024 DEMARCUS ANDERSON MD [address] [place] [address], [phone] [place] [address] 12:42:10 Malignant neoplasm of overlapping sites of breast 223839194 Active 2024 DEMARCUS ANDERSON MD [address] [place] [address], [phone], [facility] 12:42:42 Problem Notes None recorded. Procedures Surgical History Date Name Laterality Status Provider Name and Address Organization Details Recorded Time 01/27/20 Date of [facility] 09:39:49 [facility] 01/15/2025 11:06:25 hysterectomy completed [facility] 01/15/2025 11:06:31 biopsy of breast completed [facility] 01/15/2025 11:06:37 excision of [facility] completed [facility] 01/15/2025 11:07:10 Imaging Results None recorded. Procedure [...] (BMI) Body weight Heart rate Oxygen saturation Systolic And Diastolic Provider Name and Address Organization Details Last Updated DateTime 5 160.02 cm 33.2 kg/m2 45326.8 7 g 71 /min 99 % 130/84 mm[Hg] [facility] 11:15:13 Date Recorded Body height Body mass index (BMI) Body weight Heart rate Oxygen saturation Systolic And Diastolic Provider Name and Address Organization Details Last Updated DateTime 5 160.02 cm 33.1 kg/m2 00122.7 7 g 86 /min 98 % 136/86 mm[Hg] Joann [facility] 09:39:11 Social History Question Answer Notes LastModified by Organizat ion Details LastModified Time What Was The Date Of Your Most Recent Tobacco Screening? 01/26/2025 [email or web address] Information not available 01/26/2025 Has Tobacco Cessation Counseling Been Provided? No [email or web address] Information not available 01/26/2025 Sex: Unknown Functional Status Question Answer Note LastModified by Organizat ion Details LastModified Time Do you use any illicit or recreational drugs? No [email or web address] Information not available 01/26/2025 Do you or have you ever used any other forms of tobacco or nicotine? No [email or web address] Information not available 01/26/2025 Are you currently employed? No [email or web address] Information not available 01/26/2025 Mental Status None recorded. Family History Relationship Description Onset Age of this Age Resolved Age Notes LastModified by Organization Details LastModified Time Mother Malignant neoplasm of colon Not available 2024 11:07:20 Mother Sepsis [email or web address] Not available 01/15/2025 11:07:27 Father Neoplasm of brain [email or web address] Not available 2024 11:07:36 Sister Malignant neoplasm of lung [place] [id number] Not available 2024 11:07:44 Brother Alzheimer's disease [place] [id number] Not available 2024 11:07:51 Medical History Condition Response Other Breast Cancer Y Asthma Y Hypertension Y Gynecological History Statement/Question Response # of Pregnancies 5 Age at first live 16 Date of Last Mammogram 01/26/2025 # of Births 5 Obstetrics History GPAL:G 5 P 5 0 0 0 Type Value Full Term 5 Total 5 Past Encounters Encounter ID Performer Location Encounter Start Date Encounter Closed Date Diagnosis/Indication Diagnosis SNOMED-CT Code Diagnosis ICD10 Code Diagnosis IMO Codes Diagnosis Note [id number] LUCA GRANDE APRN BREAST SURGERY [facility] [place] [address] 01/15/2025 10:59:29 01/20/2025 05:02:51 History of malignant neoplasm of breast 536042906 Z85.3 35312103 55632404 Pain of left breast 1010 465812 N64.4 [id number] Patient and I discussed her history, recent [...] steps. She v/u and agrees with plan. [id number] DEMARCUS ANDERSON MD BREAST SUR[facility]ERY [facility] [place] [address] 01/26/2025 09:38:41 01/26/2025 12:57:55 Malignant neoplasm of overlapping sites of breast 969436339 C50.812 [id number] Assessment : Patient has a history of [...] Bond Member ID Guarantor Name 01/26/2025 1 [facility] (MEDICARE REPLACEMENT/A DVANTAGE - PPO) [id number] Shashank Rollins [id number] Shashank Rollins Notes Date Note Type Note [...] She was [facility] in consideration of adjuvant chemotherapy. she eventually elected against chemotherapy and was lost to follow-up. She has had negative genetic testing. She presents today for evaluation of her new onset pain given her history. She denies other bony pain, respiratory changes, cough, or other new pain. LUCA GRANDE, INSPECTOR [employer] [address] [place], [address], [facility] 01/19/2025 16:01:45 01/26/2025 text/html Interval history [...] lymph node. She was seen by Dr. Critsobal at [facility] in consideration of adjuvant chemotherapy. she eventually elected against chemotherapy and was lost to follow-up. She has had negative genetic testing. She presents today for evaluation of her new onset pain given her history. She denies other bony pain, respiratory changes, cough, or other new pain. DEMARCUS ANDERSON MD [address] [place] [address], [phone], [facility] 01/26/2025 12:43:52 OBGyn Episode No OBEpisode recorded.
--- OUTSIDE RECORDS SUMMARY | 2025-08-05 10:54 | XMS_ITS | Encounter Summary ---
[facility] Address [address] [place] [address] Care Team Providers Care School Admissions Representative Name Role Phone Radha Sanchez GERBER Primary Care Provider [phone] Encounter Details Date Type Department Care Team (Late st Contact Info) Description 09/25/2022 MDT Assessment [facility] HEMATOLOGY & ONCOLOGY [address] [place] [address] Jonathan Anderson MD [address] [address] Social History Tobacco Use Types [...] or training? Not on file Preferred Language Cape Verdean 09/12/2022 Comments Unknown Sex and Gender Information Value Date Recorded Sex Assigned at Not on file Legal Sex Female 11:48 AM EDT Gender Identity Not on file Sexual Orientation Not on file documented as of this encounter Plan of Treatment Not on file documented as of this encounter Visit Diagnoses Not on filedocumented in this encounter Care Teams School Admissions Representative Relationship Specialty Start Date End Date Radha Sanchez APRN PCP - General Internal Medicine 08/28/22 documented as of this encounter
--- OUTSIDE RECORDS SUMMARY | 2025-08-05 10:54 | XMS_ITS | Clinical Summary ---
Author Organization [facility] Address [address] [place] [address] Care Team Providers Care Printing Table Worker Name Role Phone Radha Sanchez APRN Primary Care Provider [phone] Allergies No known active allergies Medications hydroxychloroqui [...] 01/09/2023, 06/20/2022 Medical Devices Implanted Type Area Program Management Intern Device Identifier Shelf Expiration Date Model / Serial / Lot Prt Intro Vasc/Interv Vortex Fill/Hl Detach/Polyu ret/Cath 8f - [id number] Implanted:Qt y: 1 on 09/20/2022 by Jonathan Anderson MD at [facility] Implant Right: Subclavian [employer] [id number] 06/15/2025 [id number] / / [id number] Procedures Procedure Name Priority Date/Time Associated Diagnosis Comments MAMMO OUTSIDE FILMS Routine 08/30/2022 3 :05 PM EST H/O mammogram from Last 3 Months or Most Recently Relevant to Health Maintenance Results * MAMMO Outside Films (08/30/2022 3:05 PM EST) Narrative SYSTEMGENERATED, DOCUMENTATION - 08/30/2022 3:05 PM EST This procedure was auto-finalized with no dictation required. Radha Sanchez PROCESS CONTROL SUPERVISOR IMG MAMMOGRAPHY ORDERABLES F inal Result from [...] Release to patient: Routine Release Care Teams Printing Table Worker Relationship Specialty Start Date End Date Radha Sanchez APRN PCP - General Internal Medicine 08/28/22
--- OUTSIDE RECORDS SUMMARY | 2025-08-05 10:54 | XMS_ITS | Encounter Summary ---
[facility] Organization [facility] Address [address] [place] [address] Care Team Providers Care Animal Keeper Head Name Role Phone Radha Sanchez APRN Primary Care Provider [phone] Encounter Details Date Type Department Care Team (Latest Contact Info) Description 08/30/2022 Nurse Navigator [facility] NURSE NAVIGATOR [address] [place] [address] Carmela Shah, RN Malignant neoplasm [...] Primary documented in this encounter Care Teams Animal Keeper Head Relationship Specialty Start Date End Date Radha Sanchez APRN PCP - General Internal Medicine 08/28/22 documented as of this encounter
[2025-08-05 13:04] LABS: Collection Time,Urine 24 hours
[2025-08-05 13:05] LABS: Creatinine 24 Hour,Urine 950 mg/24hr (630-2500); Total Volume,Urine 1900 mL (250-2400)
[2025-08-06 12:12] LABS: Calcium, Urine 13.2 mg/dL (Not Estab.)
== END 2025-08-05 23:59 | disposition home or self-care (01) ==
LOC: LAB 10:03
PROVIDERS: PCP Nurse Practitioner Family; Visit Provider Student in an Organized Health Care Education/Training Program
DX: E21.0 Primary hyperparathyroidism (principal)
CPT/HCPCS: 82340; 82570

== ENCOUNTER 2025-08-07 09:27 | Outpatient (CLI) | payer MEDICARE, SELFPAY ==
--- OUTSIDE RECORDS SUMMARY | 2025-08-09 10:59 | XMS_ITS | Clinical Summary ---
Author Organization [facility] Address [address] [place] [address] Care Team Providers Care Duco Polisher Name Role Phone Radha Sanchez APRN Primary Care Provider [phone] Allergies No known active allergies Medications hydroxychloroqui [...] 01/09/2023, 06/20/2022 Medical Devices Implanted Type Area Ammonium Hydroxide Operator Device Identifier Shelf Expiration Date Model / Serial / Lot Prt Intro Vasc/Interv Vortex Fill/Hl Detach/Polyu ret/Cath 8f - [id number] Implanted:Qt y: 1 on 09/20/2022 by Jonathan Anderson MD at [facility] Implant Right: Subclavian [employer] [id number] 06/15/2025 [id number] / / [id number] Procedures Procedure Name Priority Date/Time Associated Diagnosis Comments MAMMO OUTSIDE FILMS Routine 08/30/2022 3 :05 PM EST H/O mammogram from Last 3 Months or Most Recently Relevant to Health Maintenance Results * MAMMO Outside Films (08/30/2022 3:05 PM EST) Narrative SYSTEMGENERATED, DOCUMENTATION - 08/30/2022 3:05 PM EST This procedure was auto-finalized with no dictation required. Radha Sanchez SALES TEAM RECRUITER IMG MAMMOGRAPHY ORDERABLES F inal Result from [...] Release to patient: Routine Release Care Teams Duco Polisher Relationship Specialty Start Date End Date Radha Sanchez APRN PCP - General Internal Medicine 08/28/22
--- OUTSIDE RECORDS SUMMARY | 2025-08-09 10:59 | XMS_ITS | Encounter Summary ---
[facility] Address [address] [place] [address] Care Team Providers Care Furniture Stainer Name Role Phone Radha Sanchez GERBER Primary Care Provider [phone] Encounter Details Date Type Department Care Team (Late st Contact Info) Description 09/25/2022 MDT Assessment [facility] HEMATOLOGY & ONCOLOGY [address] [place] [address] Jonathan Anderson MD [address] [address] Social History Tobacco Use Types [...] or training? Not on file Preferred Language Mongolian 09/12/2022 Comments Unknown Sex and Gender Information Value Date Recorded Sex Assigned at Not on file Legal Sex Female 11:48 AM EDT Gender Identity Not on file Sexual Orientation Not on file documented as of this encounter Plan of Treatment Not on file documented as of this encounter Visit Diagnoses Not on filedocumented in this encounter Care Teams Furniture Stainer Relationship Specialty Start Date End Date Radha Sanchez APRN PCP - General Internal Medicine 08/28/22 documented as of this encounter
--- OUTSIDE RECORDS SUMMARY | 2025-08-09 10:59 | XMS_ITS | Encounter Summary ---
[facility] Organization [facility] Address [address] [place] [address] Care Team Providers Care Twisthand Name Role Phone Radha Sanchez APRN Primary Care Provider [phone] Encounter Details Date Type Department Care Team (Latest Contact Info) Description 08/30/2022 Nurse Navigator [facility] NURSE NAVIGATOR [address] [place] [address] Carmela Shah, RN Malignant neoplasm [...] Primary documented in this encounter Care Teams Twisthand Relationship Specialty Start Date End Date Radha Sanchez APRN PCP - General Internal Medicine 08/28/22 documented as of this encounter
--- OUTSIDE RECORDS SUMMARY | 2025-08-09 10:59 | XMS_ITS | Data Portability ---
Author Organization [facility], [facility] Address [address] [facility] [facility] [address] [place] [address] Assessment No assessment recorded. Plan of Treatment [...] day, previous Gerald Surg pt 2024 025 [facility] Radiology [facility], [address] [place] [address], [phone], 01/26/2025 09:28:25 Medication Orders None recorded. Patient TargetsNo targets recorded. Patient InstructionsNo instructions recorded. Reason for Referral None Reported. Results Created Date Observation Date Name Description Value Unit Range Abnormal Flag Note LastModifiedBy Organization Detail LastModifiedTime 01/27/2001/26/2025 US, breas t, unila teral [address] [address] [phone] Misa luciano Name: SHASHANK luciano : 1944 [...] Alejandra currie MD on 025 9:23 AM [facility] Radiology [address], [address], 01/26/2025 09:55:00 Result Notes None recorded. Problems Name Problem SNOMED Code Status Onset Date Resolution Date Notes Provider Name and Address Organization Details Recorded Time Pain of left breast 2424779678 Active 2024 DEMARCUS ANDERSON MD [address] [place] [address], [phone] [place] [address] 12:42:10 Malignant neoplasm of overlapping sites of breast 389632871 Active 2024 DEMARCUS ANDERSON MD [address] [place] [address], [address], [facility] 12:42:42 Problem Notes None recorded. Procedures Surgical History Date Name Laterality Status Provider Name and Address Organization Details Recorded Time 01/27/20 Date of [facility] 01/26/2025 09:39:49 hernia repair completed [facility] 01/15/2025 11:06:25 hysterectomy completed [facility] 01/15/2025 11:06:31 biopsy of breast completed [facility] 01/15/2025 11:06:37 excision of breast completed [facility] 01/15/2025 11:07:10 Imaging Results None recorded. Procedure [...] Updated DateTime 5 160.02 cm 33.2 kg/m2 43671.8 7 g 71 /min 99 % 130/84 mm[Hg] [facility] 11:15:13 Date Recorded Body height Body mass index (BMI) Body weight Heart rate Oxygen saturation Systolic And Diastolic Provider Name and Address Organization Details Last Updated DateTime 5 160.02 cm 33.1 kg/m2 07704.7 7 g 86 /min 98 % 136/86 mm[Hg] Joann [facility] 09:39:11 Social History Question Answer Notes LastModified by Organizat ion Details LastModified Time What Was The Date Of Your Most Recent Tobacco Screening? 01/26/2025 [email or web address] Information not available 01/26/2025 Has Tobacco Cessation Counseling Been Provided? No [email or web address] Information not available 01/26/2025 Sex: Unknown Functional Status Question Answer Note LastModified by Organizat ion Details LastModified Time Do you use any illicit or recreational drugs? No [email or web address] Information not available 01/26/2025 Do you or have you ever used any other forms of tobacco or nicotine? No [email or web address] Information not available 01/26/2025 Are you currently employed? No [email or web address] Information not available 01/26/2025 Mental Status None recorded. Family History Relationship Description Onset Age of this Age Resolved Age Notes LastModified by Organization Details LastModified Time Mother Malignant neoplasm of colon [email or web address] Not available 2024 11:07:20 Mother Sepsis [email or web address] Not available 01/15/2025 11:07:27 Father Neoplasm of brain [email or web address] Not available 2024 11:07:36 Sister Malignant neoplasm of lung [place] [address] Not available 2024 11:07:44 Brother Alzheimer's disease [place] [address] Not available 2024 11:07:51 Medical History Condition [...] ICD10 Code Diagnosis IMO Codes Diagnosis Note [id number] LUCA GRANDE APRN BREAST SURGERY [facility] [place] [address] 01/15/2025 10:59:29 01/20/2025 05:02:51 History of malignant neoplasm of breast 692318076 Z85.3 39103183 31601524 Pain of left breast 1010 989249 N64.4 [id number] Patient and I discussed her history, recent [...] steps. She v/u and agrees with plan. [id number] DEMARCUS ANDERSON MD BREAST SURGERY [facility] [place] [address] 01/26/2025 09:38:41 01/26/2025 12:57:55 Malignant neoplasm of overlapping sites of breast 025630114 C50.812 [id number] Assessment : Patient has a history of [...] Bond Member ID Guarantor Name 01/26/2025 1 [facility] (MEDICARE REPLACEMENT/A DVANTAGE - PPO) [id number] Shashank Rollins [id number] Shashank Rollins Notes Date Note Type Note [...] She was seen by Dr. Cristobal at [facility] in consideration of adjuvant chemotherapy. she eventually elected against chemotherapy and was lost to follow-up. She has had negative genetic testing. She presents today for evaluation of her new onset pain given her history. She denies other bony pain, respiratory changes, cough, or other new pain. LUCA GRANDE, STONE LATHE OPERATOR [address] [place], [address], [facility] 01/19/2025 16:01:45 01/26/2025 text/html [...] She was seen by Dr. Cristobal at [facility] in consideration of adjuvant chemotherapy. she eventually elected against chemotherapy and was lost to follow-up. She has had negative genetic testing. She presents today for evaluation of her new onset pain given her history. She denies other bony pain, respiratory changes, cough, or other new pain. DEMARCUS ANDERSON MD [address] [place] [address], [phone], [facility] 01/26/2025 12:43:52 OBGyn Episode No OBEpisode recorded.
== END 2025-08-07 23:59 ==
LOC: LAB.DROPOF 08-09 10:37
PROVIDERS: PCP Nurse Practitioner Family; Visit Provider Nurse Practitioner Family
DX: R35.0 Frequency of micturition (principal)
CPT/HCPCS: 87086; 87088

== ENCOUNTER → 2025-09-01 09:09 | Outpatient (CLI) | payer MEDICARE, SELFPAY ==
--- NOTE | 2025-09-01 09:15 | XR_ITS ---
FINAL REPORT CLINICAL HISTORY: assessment for osteoporosis COMPARISON: None FINDINGS: Using L1-4, the bone mineral density of the spine is 1.016 g/cm2, corresponding to T-score of -0.3. Using the left hip, the bone mineral density of the femoral neck is 0.612 g/cm2, corresponding to a T-score of -2.1. Using the right hip, the bone mineral density of the femoral neck is 0.530 g/cm2, corresponding to a T-score of -2.9. Using the left forearm, the bone mineral density of the mid is 0.380 g/cm?, corresponding to a T-score of -4.1. NOTE: T-score: Standard deviation compared with peak bone mass of young adult mean. *Following the recommendations of the International Society of Bone densitometry, classification of hip BMD is based on the lower of two T-scores; total hip or femoral neck. IMPRESSION: Diminished bone mineral density of the right hip and left forearm, consistent with osteoporosis. Diminished bone mineral density of the left hip, consistent with osteopenia. Normal bone mineral density of the lumbar spine. Reviewed, Interpreted and Dictated by Yesi Flores MD Transcribed by Abbey Parra Authenticated and . [facility]
--- OUTSIDE RECORDS SUMMARY | 2025-09-01 09:54 | XMS_ITS | Clinical Summary ---
Author Organization [facility] Address [address] [place] [address] Care Team Providers Care Rand Butter Name Role Phone Radha Sanchez APRN Primary Care Provider [phone] Allergies No known active allergies Medications hydroxychloroqui [...] 01/09/2023, 06/20/2022 Medical Devices Implanted Type Area Camp Housekeeper Device Identifier Shelf Expiration Date Model / Serial / Lot Prt Intro Vasc/Interv Vortex Fill/Hl Detach/Polyu ret/Cath 8f - [id number] Implanted:Qt y: 1 on 09/20/2022 by Jonathan Anderson MD at [facility] Implant Right: Subclavian [employer] [id number] 06/15/2025 [id number] / / [id number] Procedures Procedure Name Priority Date/Time Associated Diagnosis Comments MAMMO OUTSIDE FILMS Routine 08/30/2022 3 :05 PM EST H/O mammogram from Last 3 Months or Most Recently Relevant to Health Maintenance Results * MAMMO Outside Films (08/30/2022 3:05 PM EST) Narrative SYSTEMGENERATED, DOCUMENTATION - 08/30/2022 3:05 PM EST This procedure was auto-finalized with no dictation required. Radha Sanchez DIRECTOR OF MEDICARE IMG MAMMOGRAPHY ORDERABLES F inal Result from [...] Release to patient: Routine Release Care Teams Rand Butter Relationship Specialty Start Date End Date Radha Sanchez APRN PCP - General Internal Medicine 08/28/22
--- OUTSIDE RECORDS SUMMARY | 2025-09-01 09:54 | XMS_ITS | Encounter Summary ---
[facility] Address [address] [place] [address] Care Team Providers Care Staffing Operations Manager Name Role Phone Radha Sanchez APRN Primary Care Provider [phone] Encounter Details Date Type Department Care Team (Latest Contact Info) Description 08/30/2022 Nurse Navigator [facility] NURSE NAVIGATOR [address] [place] [address] Carmela Shah, RN Malignant neoplasm [...] Primary documented in this encounter Care Teams Staffing Operations Manager Relationship Specialty Start Date End Date Radha Sanchez APRN PCP - General Internal Medicine 08/28/22 documented as of this encounter
--- OUTSIDE RECORDS SUMMARY | 2025-09-01 09:54 | XMS_ITS | Encounter Summary ---
[facility] Organization [facility] Address [address] [place] [address] Care Team Providers Care Apprenticeship Training Representative Name Role Phone Radha Sanchez GERBER Primary Care Provider [phone] Encounter Details Date Type Department Care Team (Late st Contact Info) Description 09/25/2022 MDT Assessment [facility] HEMATOLOGY & ONCOLOGY [address] [place] [address] Jonathan Anderson MD [address] [address] Social History Tobacco Use Types [...] or training? Not on file Preferred Language Northern Irish 09/12/2022 Comments Unknown Sex and Gender Information Value Date Recorded Sex Assigned at Not on file Legal Sex Female 11:48 AM EDT Gender Identity Not on file Sexual Orientation Not on file documented as of this encounter Plan of Treatment Not on file documented as of this encounter Visit Diagnoses Not on filedocumented in this encounter Care Teams Apprenticeship Training Representative Relationship Specialty Start Date End Date Radha Sanchez APRN PCP - General Internal Medicine 08/28/22 documented as of this encounter
== END ==
LOC: RAD 09:10
PROVIDERS: PCP Nurse Practitioner Family; Visit Provider Student in an Organized Health Care Education/Training Program
DX: M81.0 Age-related osteoporosis without current pathological fracture (principal); E21.0 Primary hyperparathyroidism
CPT/HCPCS: 77081

== ENCOUNTER 2025-09-14 13:05 | Outpatient (CLI) | payer MEDICARE, SELFPAY ==
--- OUTSIDE RECORDS SUMMARY | 2025-09-14 13:09 | XMS_ITS | Encounter Summary ---
[facility] Organization [facility] Address [address] [place] [address] Care Team Providers Care Education Assistant Name Role Phone Radha Sanchez GERBER Primary Care Provider [phone] Encounter Details Date Type Department Care Team (Late st Contact Info) Description 09/25/2022 MDT Assessment [facility] HEMATOLOGY & ONCOLOGY [address] [place] [address] Jonathan Anderson MD [address] [address] Social History Tobacco Use Types [...] or training? Not on file Preferred Language Zambian 09/12/2022 Comments Unknown Sex and Gender Information Value Date Recorded Sex Assigned at Not on file Legal Sex Female 11:48 AM EDT Gender Identity Not on file Sexual Orientation Not on file documented as of this encounter Plan of Treatment Not on file documented as of this encounter Visit Diagnoses Not on filedocumented in this encounter Care Teams Education Assistant Relationship Specialty Start Date End Date Radha Sanchez APRN PCP - General Internal Medicine 08/28/22 documented as of this encounter
--- OUTSIDE RECORDS SUMMARY | 2025-09-14 13:09 | XMS_ITS | Data Portability ---
Author Organization [facility] Address [address] [facility] [place] [address] Assessment No assessment recorded. Plan of Treatment [...] day, previous Gerald Surg pt 2024 025 [facility] Radiology [facility], [address] [place] [address], [phone], 01/26/2025 09:28:25 Medication Orders None recorded. Patient TargetsNo targets recorded. Patient InstructionsNo instructions recorded. Reason for Referral None Reported. Results Created Date Observation Date Name Description Value Unit Range Abnormal Flag Note LastModifiedBy Organization Detail LastModifiedTime 01/27/2001/26/2025 [place], breas t, unila teral [address] [address] Misa luciano Name: SHASHANK luciano : 1944 [...] Alejandra currie MD on 025 9:23 AM [facility] Radiology [address], [phone], 01/26/2025 09:55:00 Result Notes None recorded. Problems Name Problem SNOMED Code Status Onset Date Resolution Date Notes Provider Name and Address Organization Details Recorded Time Pain of left breast 2567904137 Active 2024 DEMARCUS ANDERSON MD [address] [place] [address], [phone] [place] [address] 12:42:10 Malignant neoplasm of overlapping sites of breast 833183511 Active 2024 DEMARCUS ANDERSON MD [address] [place] [address], [phone], [facility] 12:42:42 Problem Notes None recorded. Procedures Surgical History Date Name Laterality Status Provider Name and Address Organization Details Recorded Time 01/27/20 Date of [facility] 09:39:49 hernia repair completed [facility] 01/15/2025 11:06:25 hysterectomy completed [facility] 01/15/2025 11:06:31 biopsy of breast completed [facility] 01/15/2025 11:06:37 excision of breast completed [facility] 01/15/2025 11:07:10 Imaging Results None recorded. [...] Updated DateTime 5 160.02 cm 33.2 kg/m2 21212.8 7 g 71 /min 99 % 130/84 mm[Hg] [facility] 11:15:13 Date Recorded Body height Body mass index (BMI) Body weight Heart rate Oxygen saturation Systolic And Diastolic Provider Name and Address Organization Details Last Updated DateTime 5 160.02 cm 33.1 kg/m2 89988.7 7 g 86 /min 98 % 136/86 mm[Hg] Joann [facility] 09:39:11 Social History Question Answer Notes LastModified by Organizat ion Details LastModified Time What Was The Date Of Your Most Recent Tobacco Screening? 01/26/2025 [email or web address] Information not available 01/26/2025 Has Tobacco Cessation Counseling Been Provided? No [email or web address] Information not available 01/26/2025 Sex: Unknown Functional Status Question Answer Note LastModified by Organizat ion Details LastModified Time Do you use any illicit or recreational drugs? No [email or web address] Information not available 01/26/2025 Do you or have you ever used any other forms of tobacco or nicotine? No [email or web address] Information not available 01/26/2025 Are you currently employed? No [email or web address] Information not available 01/26/2025 Mental Status None recorded. Family History Relationship Description Onset Age of this Age Resolved Age Notes LastModified by Organization Details LastModified Time Mother Malignant neoplasm of colon [email or web address] Not available 2024 11:07:20 Mother Sepsis Not available 01/15/2025 11:07:27 Father Neoplasm of brain [email or web address] Not available 2024 11:07:36 Sister Malignant neoplasm of lung [email or web address] Not available 2024 11:07:44 Brother Alzheimer's disease [place] [email or web address] Not available 2024 11:07:51 Medical History Condition [...] ICD10 Code Diagnosis IMO Codes Diagnosis Note [id number] LUCA GRANDE APRN BREAST SURGERY [facility] [place] [address] 01/15/2025 10:59:29 01/20/2025 05:02:51 History of malignant neoplasm of breast 282166668 Z85.3 [id number] Pain of left breast 1010 650993 N64.4 [id number] Patient and I discussed her history, recent [...] steps. She v/u and agrees with plan. [id number] DEMARCUS ANDERSON MD BREAST SURGERY [facility] [place] [address] 01/26/2025 09:38:41 01/26/2025 12:57:55 Malignant neoplasm of overlapping sites of breast [id number] C50.812 [id number] Assessment : Patient has a history of [...] Bond Member ID Guarantor Name 01/26/2025 1 [facility] (MEDICARE REPLACEMENT/A DVANTAGE - PPO) [id number] Shashank Rollins [id number] Shashank Rollins Notes Date Note Type Note [...] She was seen by Dr. Cristobal at [facility] in consideration of adjuvant chemotherapy. she eventually elected against chemotherapy and was lost to follow-up. She has had negative genetic testing. She presents today for evaluation of her new onset pain given her history. She denies other bony pain, respiratory changes, cough, or other new pain. LUCA GRANDE, ZIPPER REPAIRER [address] [place], [address], [facility] 01/19/2025 16:01:45 01/26/2025 text/html Interval [...] She was seen by Dr. Cristobal at [facility] in consideration of adjuvant chemotherapy. she eventually elected against chemotherapy and was lost to follow-up. She has had negative genetic testing. She presents today for evaluation of her new onset pain given her history. She denies other bony pain, respiratory changes, cough, or other new pain. DEMARCUS ANDERSON MD [address] [place] [address], [phone], [facility] 01/26/2025 12:43:52 OBGyn Episode No OBEpisode recorded.
--- OUTSIDE RECORDS SUMMARY | 2025-09-14 13:09 | XMS_ITS | Encounter Summary ---
[facility] Address [address] [place] [address] Care Team Providers Care Sales Commissions Analyst Name Role Phone Radha Sanchez APRN Primary Care Provider [phone] Encounter Details Date Type Department Care Team (Latest Contact Info) Description 08/30/2022 Nurse Navigator [facility] NURSE NAVIGATOR [address] [place] [address] Carmela Shah, RN Malignant neoplasm [...] Primary documented in this encounter Care Teams Sales Commissions Analyst Relationship Specialty Start Date End Date Radha Sanchez APRN PCP - General Internal Medicine 08/28/22 documented as of this encounter
--- OUTSIDE RECORDS SUMMARY | 2025-09-14 13:09 | XMS_ITS | Clinical Summary ---
Author Organization [facility] Address [address] [place] [address] Care Team Providers Care Jewelry Model Maker Name Role Phone Radha Sanchez APRN Primary Care Provider Allergies No known active allergies Medications hydroxychloroqui [...] 01/09/2023, 06/20/2022 Medical Devices Implanted Type Area Package Wrapper Device Identifier Shelf Expiration Date Model / Serial / Lot Prt Intro Vasc/Interv Vortex Fill/Hl Detach/Polyu ret/Cath 8f - [id number] Implanted:Qt y: 1 on 09/20/2022 by Jonathan Anderson MD at [facility] Implant Right: [employer] [id number] 06/15/2025 [id number] / / [id number] Procedures Procedure Name Priority Date/Time Associated Diagnosis Comments MAMMO OUTSIDE FILMS Routine 08/30/2022 3 :05 PM EST H/O mammogram from Last 3 Months or Most Recently Relevant to Health Maintenance Results * MAMMO Outside Films (08/30/2022 3:05 PM EST) Narrative SYSTEMGENERATED, DOCUMENTATION - 08/30/2022 3:05 PM EST This procedure was auto-finalized with no dictation required. Radha Sanchez STONE FABRICATOR IMG MAMMOGRAPHY ORDERABLES F inal Result from [...] Release to patient: Routine Release Care Teams Jewelry Model Maker Relationship Specialty Start Date End Date Radha Sanchez APRN PCP - General Internal Medicine 08/28/22
== END 2025-09-14 23:59 | disposition home or self-care (01) ==
LOC: LAB 13:06
PROVIDERS: PCP Nurse Practitioner Family; Visit Provider Student in an Organized Health Care Education/Training Program
DX: R69 Illness, unspecified (principal)